=== PATIENT | female | born 1935 | race Caucasian/White ===

== ENCOUNTER 2016-10-28 21:24 | Emergency (ER) | payer MEDICARE, BC ==
[2016-10-28] MEDS ORDERED: NS 0.9% 1000 ML* 1,000 ML IV ONE (21:43)
[2016-10-28] MEDS ORDERED: Morphine INJ* 2 MG/ML 1 ML SYRINGE IV ONE (21:43)
[2016-10-28] MEDS ORDERED: Ondansetron INJ* 2 MG/ML VIAL IV ONE (21:43)
[2016-10-28 22:23] LABS: Hematocrit 41 % (35-47); Hemoglobin 13.4 g/dl (12.0-16.0); Mean Corpuscular HGB Conc 33 g/dl (31-36); Mean Corpuscular Hemoglobin 31 pg (27-31); Mean Corpuscular Volume 95 fL (80-97); Mean Platelet Volume 9 um3 (7.4-10.4); Red Blood Count 4.31 10^6/ul (4.0-5.4); Red Cell Distribution Width 13 % (10.5-15); White Blood Count 15.6 10^3/ul (3.5-10.8)
[2016-10-28 22:39] LABS: Albumin 4.6 g/dL (3.2-5.2); BUN/Creatinine Ratio 14.4 (8-20); C Reactive Protein 2.84 mg/L (< 5.00); Calcium 10.5 mg/dL (8.6-10.3); EGFR African American 24.6 (>60); EGFR Non-African American 19.1 (>60); Globulin 3.5 g/dL (2-4); Magnesium 2.2 mg/dL (1.9-2.7); Potassium 4.3 mmol/L (3.5-5.0); Total Bilirubin 0.6 mg/dL (0.2-1.0); Total Protein 8.1 g/dL (6.4-8.9)
--- NOTE | 2016-10-28 22:44 | ED ---
Pooja Lynch Anna, scribed for Roldan Gregory MD on 10/28/16 at 2147 . Abdominal Pain/Female - HPI Summary HPI Summary: Patient is an 81 y/o female coming to [facility] presenting with RLQ abdominal pain that began two days ago. She describes the severity of the pain as 10/10. The pain radiates down her groin. She couldnt get out of bed because of the pain. She denies fever, nausea, vomiting, diarrhea, and dysuria. She took hydrocodone , which she takes for her rheumatoid arthritis, but it did not alleviate her abd pain. She lives alone. Her history is significant for kidney stones and an appendectomy. - History of Current Complaint Chief Complaint: EDAbdPain Stated Complaint: ABD PAIN Time Seen by Provider: 10/28/16 21:38 Hx Obtained From: Patient ?: No Severity Initially: Moderate Severity Currently: Moderate Pain Intensity: 10 Pain Scale Used: 0-10 Numeric Location: Discrete At: RLQ Radiates: Yes Radiates to: Inguinal Associated Signs and Symptoms: Negative: Fever, Urinary Symptoms, Nausea, Vomiting, Diarrhea Allergies/Adverse Reactions: Allergies Allergy/AdvReac Type Severity Reaction Status Date / Time LIZ Inhibitors Allergy Severe Swelling Verified 10/28/16 21:41 Of Face,Lips,& Throat Lisinopril Allergy Severe See Comment Verified 10/28/16 21:41 PMH/Surg Hx/FS Hx/Imm Hx Endocrine/Hematology History: Denies: Hx Diabetes, Hx Anemia Cardiovascular History: Reports: Hx Angina, Hx Coronary Artery Disease, Hx Hypercholesterolemia, Hx Hypertension, Hx Myocardial Infarction, Hx Valvular Heart Disease - MV, Other Cardiovascular Problems/Disorders - PRIMARY CARDIOPATHY Denies: Hx Pacemaker/ICD Respiratory History: Denies: Hx Asthma, Other Respiratory Problems/Disorders GI History: Reports: Hx Gastroesophageal Reflux Disease, Hx Hiatal Hernia Denies: Hx Jaundice History: Reports: Hx Chronic Renal Failure, Hx Kidney Stones - 10 years ago Musculoskeletal History: Reports: Hx Arthritis - RA, Hx Rheumatoid Arthritis, Hx Back Problems - degenerative disease, Other Musculoskeletal History - SPINAL STENOSIS Sensory History: Reports: Hx Contacts or Glasses, Hx Glaucoma - BILAT, Hx Hearing Aid - left ear, 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 Opthamlomology History: Reports: Hx Contacts or Glasses, Hx Glaucoma - BILAT Psychiatric History: Denies: Hx Panic Disorder - Cancer History Cancer Type, Location and Year: left cheek basal cell skin cancer- 1980 Hx Chemotherapy: No Hx Radiation Therapy: No - Surgical History Surgery Procedure, Year, and Place: bladder neck plasty surgery- 1990, hysterectomy- 1974, ex lap- 1999, RT ear surgery(LABRYNTHECTOMY), LAP PALMER surgery- 1995, right kidney stent- 2002, bilateral oophrectomy -2002, replace stent right kidney -2002,LEFT carpal tunnel release- 2009,HEART STENTS X 2(HAS CARDS),CATARACT REPAIR; appendectomy Hx Anesthesia Reactions: No Infectious Disease History: No Infectious Disease History: Denies: Traveled Outside the [place] in Last 30 Days - Family History Known Family History: Positive: Cardiac Disease - Social History Occupation: Retired Lives: Alone Alcohol Use: Occasionally Alcohol Amount: glass of wine Substance Use Type: Reports: None Hx Tobacco Use: No Smoking Status (MU): Never Smoked Tobacco Review of Systems Negative: Fever Positive: Abdominal Pain. Negative: Vomiting, Diarrhea, Nausea Negative: dysuria All Other Systems Reviewed And Are Negative: Yes Physical Exam Triage Information Reviewed: Yes Vital Signs On Initial Exam: Initial Vitals Temp Pulse Resp BP Pulse Ox 97.5 F 78 18 195/83 96 10/28/16 21:38 10/28/16 21:38 10/28/16 21:38 10/28/16 21:38 10/28/16 21:38 Vital Signs Reviewed: Yes Appearance: Positive: Pain Distress - mild discomfort, Thin Skin: Positive: Warm Head/Face: Positive: Normal Head/Face Inspection Eyes: Positive: JEB ENT: Positive: Hearing grossly normal Neck: Positive: Supple Respiratory/Lung Sounds: Positive: Breath Sounds Present Cardiovascular: Positive: RRR Abdomen Description: Positive: Soft, Other: - mild lower abd tenderness. Negative: Distended, Guarding Bowel Sounds: Positive: Present Musculoskeletal: Positive: Strength/ROM Intact Neurological: Positive: Sensory/Motor Intact, Alert, Oriented to Person Place, Time, Normal Gait Diagnostics - Vital Signs Vital Signs Temp Pulse Resp BP Pulse Ox 10/28/16 21:38 97.5 F 78 18 195/83 96 - Laboratory Lab Results: Lab Results 10/28/16 10/28/16 10/28/16 Range/Units 22:05 22:05 22:05 WBC 15.6 H (3.5-10.8) 10^3/ul RBC 4.31 (4.0-5.4) 10^6/ul Hgb 13.4 (12.0-16.0) g/dl Hct 41 (35-47) % MCV 95 (80-97) fL MCH 31 (27-31) pg MCHC 33 (31-36) g/dl RDW 13 (10.5-15) % Plt Count 217 (150-450) 10^3/ul MPV 9 (7.4-10.4) um3 Neut % (Auto) 78.5 (38-83) % Lymph % (Auto) 8.8 L (25-47) % [place] % (Auto) 5.4 (1-9) % Eos % (Auto) 5.9 (0-6) % Baso % (Auto) 1.4 (0-2) % Absolute Neuts (auto) 12.2 H (1.5-7.7) 10^3/ul Absolute Lymphs (auto) 1.4 (1.0-4.8) 10^3/ul Absolute Monos (auto) 0.8 (0-0.8) 10^3/ul Absolute Eos (auto) 0.9 H (0-0.6) 10^3/ul Absolute Basos (auto) 0.2 (0-0.2) 10^3/ul Absolute Nucleated RBC 0 10^3/ul Nucleated RBC % 0 INR (Anticoag Therapy) 0.92 (0.89-1.11) Sodium 138 (133-145) mmol/L Potassium 4.3 (3.5-5.0) mmol/L Chloride 104 (101-111) mmol/L Carbon Dioxide 23 (22-32) mmol/L Anion Gap 11 (2-11) mmol/L BUN 35 H (6-24) mg/dL Creatinine 2.43 H (0.51-0.95) mg/dL Est GFR ( Amer) 24.6 (>60) Est GFR (Non-Af Amer) 19.1 (>60) BUN/Creatinine Ratio 14.4 (8-20) Glucose 102 H (70-100) mg/dL Lactic Acid (0.5-2.0) mmol/L Calcium 10.5 H (8.6-10.3) mg/dL Magnesium 2.2 (1.9-2.7) mg/dL Total Bilirubin 0.60 (0.2-1.0) mg/dL AST 22 (13-39) U/L ALT 12 (7-52) U/L Alkaline Phosphatase 98 (34-104) U/L C-Reactive Protein 2.84 (< 5.00) mg/L Total Protein 8.1 (6.4-8.9) g/dL Albumin 4.6 (3.2-5.2) g/dL Globulin 3.5 (2-4) g/dL Albumin/Globulin Ratio 1.3 (1-3) Lipase 10 L (11.0-82.0) U/L 10/28/16 Range/Units 22:05 WBC (3.5-10.8) 10^3/ul RBC (4.0-5.4) 10^6/ul Hgb (12.0-16.0) g/dl Hct (35-47) % MCV (80-97) fL MCH (27-31) pg MCHC (31-36) g/dl RDW (10.5-15) % Plt Count (150-450) 10^3/ul MPV (7.4-10.4) um3 Neut % (Auto) (38-83) % Lymph % (Auto) (25-47) % [place] % (Auto) (1-9) % Eos % (Auto) (0-6) % Baso % (Auto) (0-2) % Absolute Neuts (auto) (1.5-7.7) 10^3/ul Absolute Lymphs (auto) (1.0-4.8) 10^3/ul Absolute Monos (auto) (0-0.8) 10^3/ul Absolute Eos (auto) (0-0.6) 10^3/ul Absolute Basos (auto) (0-0.2) 10^3/ul Absolute Nucleated RBC 10^3/ul Nucleated RBC % INR (Anticoag Therapy) (0.89-1.11) Sodium (133-145) mmol/L Potassium (3.5-5.0) mmol/L Chloride (101-111) mmol/L Carbon Dioxide (22-32) mmol/L Anion Gap (2-11) mmol/L BUN (6-24) mg/dL Creatinine (0.51-0.95) mg/dL Est GFR ( Amer) (>60) Est GFR (Non-Af Amer) (>60) BUN/Creatinine Ratio (8-20) Glucose (70-100) mg/dL Lactic Acid 1.4 (0.5-2.0) mmol/L Calcium (8.6-10.3) mg/dL Magnesium (1.9-2.7) mg/dL Total Bilirubin (0.2-1.0) mg/dL AST (13-39) U/L ALT (7-52) U/L Alkaline Phosphatase (34-104) U/L C-Reactive Protein (< 5.00) mg/L Total Protein (6.4-8.9) g/dL Albumin (3.2-5.2) g/dL Globulin (2-4) g/dL Albumin/Globulin Ratio (1-3) Lipase (11.0-82.0) U/L Result Diagrams: 10/28/16 22:05 10/28/16 22:05 Lab Statement: Any lab studies that have been ordered have been reviewed, and results considered in the medical decision making process. - CT CT abd/pel CT Interpretation: Positive (See Comments) CT Interpretation Completed By: Radiologist - EKG 1 Cardiac Rate: NL - 82 bpm EKG Rhythm: Sinus Rhythm ST Segment: Normal Ectopy: None EKG Interpretation: LVH Re-Evaluation - Re-Evaluation First Eval Change: Improved - pt feels much better after enema with good results Abdominal Pain Fem Course/Dx - Course Course Of Treatment: Patient is an 81 y/o female coming to [facility] presenting with RLQ abdominal pain that began two days ago. She describes the severity of the pain as 10/10. The pain radiates down her groin. She couldnt get out of bed because of the pain. She denies fever, nausea, vomiting, diarrhea, and dysuria. She took hydrocodone, which she takes for her rheumatoid arthritis, but it did not alleviate her abd pain. She lives alone. Her history is significant for kidney stones, appendectomy. The patient was given fluids, Morphine, and Zofran in the ED course. EKG reveals NSR at 82 bpm with LVH. Labs reveal WBC of 15.6, lymph % of 8.8, absolute neuts of 12.2, absolute Eos of 0.9 , BUN of 35, Creatinine of 2.43, Glucose of 102, Calcium of 10.5, and lipase of 10. CT abd/pel reveals s/p cholecystectomy and hysterectomy. Increased extrahepatic biliary dilatation since 10/30/07, common duct previously 1 cm diameter and now 1.4 cm, uncertain significance. No visible choledocholithiasis or obvious periampullary mass; exam limited by noncontrast technique. Stable 1 cm right hepatic cyst or hemangioma. Punctate stones appearing in left kidney. Subcentimeter cortical hypodensity appearing in upper pole right kidney, too small to characterize. Minimal caliectasis left kidney. Unremarkable pancreas. Inspissated-appearing feces colon and rectum, possibly constipation. No bowel obstruction, colitis, free fluid, or air. Diverticulosis colon without acute diverticulitis. Appendix not seen. Calcifications below bladder base, possibly stones in a urethral diverticulum, stable. UA reveals 2+ protein, trace ketones , trace leukocyte esterase, 1+ urine WBC, 1+ urine RBC, present squamous epithelial cells, and 1+ bacteria. A soap suds enema was completed in the ED course. Upon re-evaluation, patient now reports that she is feeling better. Patient will be discharged with follow up from primary care physician. Patient is agreeable with plan. - Diagnoses Provider Diagnoses: Abdominal pain, Constipation Discharge - Discharge Plan Condition: Stable Disposition: HOME Patient Education Materials: Constipation (ED), Abdominal Pain (ED) Referrals: Enrique Null MD [Primary Care Provider] - Additional Instructions: Follow up with your primary care provider within 48 hours. Return to the Emergency Department for new or worsening symptoms. The documentation as recorded by the Pooja rodriguez Anna accurately reflects the service I personally performed and the decisions made by , Roldan Gregory MD.
[2016-10-29 00:24] LABS: Urine Bacteria 1+ (Absent); Urine Bilirubin Negative (Negative); Urine Glucose Negative (Negative); Urine Nitrite Negative (Negative)
[2016-10-29 02:58] VITALS: BP 197/76
--- NOTE | 2016-10-29 07:24 | RAD ---
INDICATION: Abdominal pain COMPARISON: October 30, 2007 TECHNIQUE: Axial source images were acquired from the level hemidiaphragms to the symphysis pubis. The examination was ordered with oral contrast only. Lung bases: The lung bases are clear. Liver: The liver is normal in size. Noncontrast imaging shows no evidence of a hepatic mass or ductal dilatation. Gallbladder: Cholecystectomy. The common duct is prominent likely related to postcholecystectomy state. Spleen: The spleen is normal in size. The noncontrast CT appearance is normal. Pancreas: Noncontrast imaging shows no pancreatic mass or ductal dilitation. Adrenal glands: No masses are identified. Kidneys/Bladder: There are tiny, nonobstructive, left renal calculi. There is probably a tiny exophytic cyst in lower pole left kidney. The noncontrast CT the kidneys otherwise unremarkable Adenopathy: There is no evidence of intraperitoneal or retroperitoneal adenopathy. Evaluation is limited without oral contrast. Fluid collections: There are no free or localized fluid collections. Vessels: The aorta and iliac vessels are normal in caliber. There are no significant atherosclerotic changes. The IVC appears normal Pelvic organs: Hysterectomy. No adnexal mass. Possible calcification in a urethral diverticulum, unchanged GI tract: No CT abnormality upper GI tract. Colonic redundancy with retained stool and scattered diverticula of the sigmoid colon. No CT evidence of acute diverticulitis. Soft tissues: No soft tissue abnormalities of the extraperitoneal abdomen or pelvis are identified. Osseous structures: There are no acute osseous findings. IMPRESSION: 1. Postsurgical changes to include cholecystectomy and hysterectomy. 2. Scattered diverticula without CT evidence of acute diverticulitis. Retained stool. 3. Tiny, nonobstructive, left renal calculi. 4. 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 5. No acute CT findings. No mass or inflammatory change.
== END 2016-10-29 02:57 | disposition home or self-care (01) ==
LOC: ED 21:24
DX: R10.31 Right lower quadrant pain (principal); K59.00 Constipation, unspecified
CPT/HCPCS: 36415; 74176; 80053; 81003; 81015; 83605; 83690; 83735; 85025; 85610; 86140; 87086; 93005; 96374; 96375; 99283; J2270; J2405

== ENCOUNTER 2016-10-29 15:48 | Inpatient (IN) | payer MEDICARE, BC ==
[2016-10-29] MEDS ORDERED: NS 0.9% 1000 ML* 1,000 ML IV ONE ×2 (15:58→16:51)
[2016-10-29 16:38] LABS: Hematocrit 38 % (35-47); Hemoglobin 12.8 g/dl (12.0-16.0); Mean Corpuscular HGB Conc 33 g/dl (31-36); Mean Corpuscular Hemoglobin 31 pg (27-31); Mean Corpuscular Volume 94 fL (80-97); Mean Platelet Volume 9 um3 (7.4-10.4); Red Cell Distribution Width 13 % (10.5-15)
[2016-10-29] MEDS ORDERED: Morphine INJ* 4 MG/ML 1 ML SYRINGE IV ONE (16:51)
[2016-10-29] MEDS ORDERED: Ondansetron INJ* 2 MG/ML VIAL IV ONE (16:51)
[2016-10-29 16:54] LABS: Albumin 4.5 g/dL (3.2-5.2); BUN/Creatinine Ratio 15.8 (8-20); C Reactive Protein 6.95 mg/L (< 5.00); Calcium 10.4 mg/dL (8.6-10.3); EGFR African American 27.3 (>60); EGFR Non-African American 21.3 (>60); Globulin 3.3 g/dL (2-4); Total Bilirubin 0.5 mg/dL (0.2-1.0); Total Protein 7.8 g/dL (6.4-8.9)
--- NOTE | 2016-10-29 20:04 | ED ---
Ochoa Lynch Erika, scribed for Marcela Hudson MD on 10/29/16 at 1740 . Abdominal Pain/Female - HPI Summary HPI Summary: Patient is an 81-year-old female presenting to the ED with her son with a CC of constant abdominal pain starting 10/27/2016. Patient reports that she has had RLQ pain radiating to the suprapubic region. Patient reports that pain had sudden onset with pain rated a 10/10, and that pain is still a 10/10. Pain is slightly alleviated by lying on her left side and applying pressure to the RLQ. Pain is aggravated by palpation. Patient was seen in the ED last night and had a CT A/P W/O contrast that showed retained stool and no acute CT findings, and she was diagnosed with constipation. Patient reports she does not think she is constipated, and has been having her normal BMs each day. She did have an enema at the ED last night and states she has had diarrhea since that time. Pain improved temporarily while in the ED yesterday, but returned today. She does state she was able to eat breakfast today. Patient denies trauma, and she denies back pain and leg pain. She also denies cough and dysuria. Hx [place] in 2008 - she takes a daily ASA but no other blood thinners. She denies Hx stroke. PSHx hysterectomy, appendectomy, cholecystectomy, exploratory RLQ surgery. She denies FHx diabetes. Patient lives alone, does not smoke, and occasionally drinks. - History of Current Complaint Chief Complaint: EDAbdPain Stated Complaint: ABD PAIN Time Seen by Provider: 10/29/16 15:56 Hx Obtained From: Patient, Family/Parker - Son Onset/Duration: Sudden Onset, Lasting Days, Still Present Timing: Constant Severity Currently: Moderate Pain Intensity: 10 Pain Scale Used: 0-10 Numeric Location: Discrete At: RLQ, Suprapubic Aggravating Factor(s): Other: - palpation Alleviating Factor(s): Other: - lying on left side and applying pressure to the area Associated Signs and Symptoms: Positive: Diarrhea - since enema Allergies/Adverse Reactions: Allergies Allergy/AdvReac Type Severity Reaction Status Date / Time LIZ Inhibitors Allergy Severe Swelling Verified 10/28/16 21:41 Of Face,Lips,& Throat Lisinopril Allergy Severe See Comment Verified 10/28/16 21:41 PMH/Surg Hx/FS Hx/Imm Hx Endocrine/Hematology History: Denies: Hx Diabetes, Hx Anemia Cardiovascular History: Reports: Hx Angina, Hx Coronary Artery Disease, Hx Hypercholesterolemia, Hx Hypertension, Hx Myocardial Infarction, Hx Valvular Heart Disease - MV, Other Cardiovascular Problems/Disorders - PRIMARY CARDIOPATHY Denies: Hx Pacemaker/ICD Respiratory History: Denies: Hx Asthma, Other Respiratory Problems/Disorders GI History: Reports: Hx Gastroesophageal Reflux Disease, Hx Hiatal Hernia Denies: Hx Jaundice History: Reports: Hx Chronic Renal Failure, Hx Kidney Stones - 10 years ago Musculoskeletal History: Reports: Hx Arthritis - RA, Hx Rheumatoid Arthritis, Hx Back Problems - degenerative disease, Other Musculoskeletal History - SPINAL STENOSIS Sensory History: Reports: Hx Contacts or Glasses, Hx Glaucoma - BILAT, Hx Hearing Aid - left ear, 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 Opthamlomology History: Reports: Hx Contacts or Glasses, Hx Glaucoma - BILAT Psychiatric History: Denies: Hx Panic Disorder - Cancer History Cancer Type, Location and Year: left cheek basal cell skin cancer- 1980 Hx Chemotherapy: No Hx Radiation Therapy: No - Surgical History Surgery Procedure, Year, and Place: bladder neck plasty surgery- 1990, hysterectomy- 1974, ex lap- 1999, RT ear surgery(LABRYNTHECTOMY), LAP PALMER surgery- 1995, right kidney stent- 2002, bilateral oophrectomy -2002, replace stent right kidney -2002,LEFT carpal tunnel release- 2009,HEART STENTS X 2(HAS CARDS),CATARACT REPAIR; appendectomy Hx Anesthesia Reactions: No Infectious Disease History: No Infectious Disease History: Denies: Traveled Outside the [place] in Last 30 Days - Family History Known Family History: Positive: Cardiac Disease Negative: Diabetes - Social History Occupation: Retired Lives: Alone Alcohol Use: Occasionally Alcohol Amount: glass of wine Substance Use Type: Reports: None Hx Tobacco Use: No Smoking Status (MU): Never Smoked Tobacco Review of Systems Negative: Cough Positive: Abdominal Pain, Diarrhea - since enema last night Negative: dysuria Negative: Arthralgia, Myalgia All Other Systems Reviewed And Are Negative: Yes Physical Exam Triage Information Reviewed: Yes Vital Signs On Initial Exam: Initial Vitals Temp Pulse Resp BP Pulse Ox 98.4 F 92 16 197/81 100 10/29/16 15:49 10/29/16 15:49 10/29/16 15:49 10/29/16 15:49 10/29/16 15:49 Vital Signs Reviewed: Yes Appearance: Positive: Well-Appearing, No Pain Distress Skin: Positive: Warm, Skin Color Reflects Adequate Perfusion, Dry Eyes: Positive: EOMI, JEB ENT: Positive: Pharynx normal, TMs normal Neck: Positive: Supple, Nontender Respiratory/Lung Sounds: Positive: Clear to Auscultation, Breath Sounds Present. Negative: Rales, Rhonchi, Wheezes Cardiovascular: Positive: RRR, Other - No gallops. Negative: Murmur, Rub Abdomen Description: Positive: Soft, Other: - RLQ tenderness. No rebound. Negative: CVA Tenderness (R), Distended, Guarding Bowel Sounds: Positive: Present Musculoskeletal: Positive: Other - GAVIN. Negative: Edema Left, Edema Right Neurological: Positive: Sensory/Motor Intact, Alert, Oriented to Person Place, Time, Other - CN II-XII Psychiatric: Positive: Affect/Mood Appropriate Diagnostics - Vital Signs Vital Signs Temp Pulse Resp BP Pulse Ox 10/29/16 16:06 100.0 F 79 31 187/117 98 10/29/16 15:49 98.4 F 92 16 197/81 100 - Laboratory Lab Results: Lab Results 10/29/16 10/29/16 10/29/16 Range/Units 16:29 16:29 16:29 WBC 10.0 (3.5-10.8) 10^3/ul RBC 4.10 (4.0-5.4) 10^6/ul Hgb 12.8 (12.0-16.0) g/dl Hct 38 (35-47) % MCV 94 (80-97) fL MCH 31 (27-31) pg MCHC 33 (31-36) g/dl RDW 13 (10.5-15) % Plt Count 205 (150-450) 10^3/ul MPV 9 (7.4-10.4) um3 Neut % (Auto) 77.7 (38-83) % Lymph % (Auto) 14.2 L (25-47) % [place] % (Auto) 6.0 (1-9) % Eos % (Auto) 1.1 (0-6) % Baso % (Auto) 1.0 (0-2) % Absolute Neuts (auto) 7.8 H (1.5-7.7) 10^3/ul Absolute Lymphs (auto) 1.4 (1.0-4.8) 10^3/ul Absolute Monos (auto) 0.6 (0-0.8) 10^3/ul Absolute Eos (auto) 0.1 (0-0.6) 10^3/ul Absolute Basos (auto) 0.1 (0-0.2) 10^3/ul Absolute Nucleated RBC 0.01 10^3/ul Nucleated RBC % 0.1 Sodium 139 (133-145) mmol/L Potassium 4.0 (3.5-5.0) mmol/L Chloride 105 (101-111) mmol/L Carbon Dioxide 21 L (22-32) mmol/L Anion Gap 13 H (2-11) mmol/L BUN 35 H (6-24) mg/dL Creatinine 2.22 H (0.51-0.95) mg/dL Est GFR ( Amer) 27.3 (>60) Est GFR (Non-Af Amer) 21.3 (>60) BUN/Creatinine Ratio 15.8 (8-20) Glucose 111 H (70-100) mg/dL Lactic Acid 1.4 (0.5-2.0) mmol/L Calcium 10.4 H (8.6-10.3) mg/dL Total Bilirubin 0.50 (0.2-1.0) mg/dL AST 23 (13-39) U/L ALT 12 (7-52) U/L Alkaline Phosphatase 96 (34-104) U/L C-Reactive Protein 6.95 H (< 5.00) mg/L Total Protein 7.8 (6.4-8.9) g/dL Albumin 4.5 (3.2-5.2) g/dL Globulin 3.3 (2-4) g/dL Albumin/Globulin Ratio 1.4 (1-3) Lipase 14 (11.0-82.0) U/L Result Diagrams: 10/29/16 16:29 10/29/16 16:29 Lab Statement: Any lab studies that have been ordered have been reviewed, and results considered in the medical decision making process. - EKG 18:34 Cardiac Rate: NL - at 93 bpm EKG Rhythm: Sinus Rhythm ST Segment: Non-Specific EKG Interpretation: Anterior and inferior Q waves EKG Comparison: No Significant Change - From EKG done yesterday Abdominal Pain Fem Course/Dx - Course Course Of Treatment: 81 yo female who returns with rlq pain of unknown etiology , ct done yesterday was re- reviewed today without any real areas of concern, pt mounting low grade temp here. case discussed with Dr. Strong who will evaluate pt for admission - Diagnoses Provider Diagnoses: Abdominal pain - Provider Notifications Discussed Care Of Patient With: Dr. Narayan (radiology) at 17:50 - will review CT from last night again - no acute findings - large amount of liquid stool, no diverticuli on the right side, no thickening of the colon wall. Dr. Strong ( hospitalist) at 19:35 - will see patient. Discharge - Discharge Plan Condition: Stable Disposition: ADMITTED TO [facility] The documentation as recorded by the Ochoa rodriguez Erika accurately reflects the service I personally performed and the decisions made by me, Marcela Hudson MD.
[2016-10-29] MEDS ORDERED: Acetaminophen TAB* 325 MG PO PRN (20:17)
[2016-10-29] MEDS ORDERED: Cyclobenzaprine TAB* 10 MG PO PRN (20:22)
[2016-10-29] MEDS ORDERED: Piperac/Tazob 3.375 gm in NS* 3.375 GM/100 ML BAG IVPB ONE (20:30)
[2016-10-29] MEDS: Morphine INJ* 2 MG/ML 1 ML SYRINGE IV PRN ×3 (21:22→22:44)
[2016-10-29] MEDS ORDERED: Morphine INJ* 2 MG/ML 1 ML SYRINGE IV ONE (21:30)
[2016-10-29 22:10] LABS: Urine Bacteria Absent (Absent); Urine Bilirubin Negative (Negative); Urine Glucose Negative (Negative); Urine Nitrite Negative (Negative)
[2016-10-29] MEDS: NS 0.9% 1000 ML* 1,000 ML IV SCH (22:41)
[2016-10-29] MEDS: hydrALAZINE IV* 20 MG/ML VIAL IV SLOW PU PRN (22:51)
[2016-10-29] MEDS: Atorvastatin* 20 MG TAB PO SCH (22:55)
[2016-10-29] MEDS: Carvedilol TAB* 25 MG PO SCH (22:55)
[2016-10-29] MEDS: Dorzolamide/Timolol OPTH (NF) 10 ML BOT BOTH EYES SCH (22:56)
[2016-10-29] MEDS: Brimonidine P 0.15%(NF) OPH SOL 5 ML BTL BOTH EYES SCH (22:56)
[2016-10-29] MEDS: Heparin VIAL(*) 5000 UNITS/ML VIAL (FIVE THOUSAND) SUBCUT SCH (22:57)
[2016-10-29] MEDS: Latanoprost 0.005%* 2.5 ml BTL BOTH EYES SCH (23:19)
[2016-10-29] MEDS: HYDROcodone/ACETAMIN 5-325 MG* 1 TAB PO PRN (23:43)
[2016-10-30] MEDS: Piperac/Tazob 3.375 gm in NS* 3.375 GM/100 ML BAG IVPB SCH ×2 (01:47→13:22)
[2016-10-30] MEDS: Heparin VIAL(*) 5000 UNITS/ML VIAL (FIVE THOUSAND) SUBCUT SCH ×3 (05:38→21:11)
[2016-10-30 06:41] LABS: Hematocrit 36 % (35-47); Hemoglobin 11.8 g/dl (12.0-16.0); Mean Corpuscular HGB Conc 33 g/dl (31-36); Mean Corpuscular Hemoglobin 31 pg (27-31); Mean Corpuscular Volume 95 fL (80-97); Mean Platelet Volume 9 um3 (7.4-10.4); Red Blood Count 3.76 10^6/ul (4.0-5.4); Red Cell Distribution Width 13 % (10.5-15); White Blood Count 11.2 10^3/ul (3.5-10.8)
[2016-10-30 06:50] LABS: BUN/Creatinine Ratio 14.4 (8-20); Calcium 9.4 mg/dL (8.6-10.3); EGFR African American 28.2 (>60); EGFR Non-African American 21.9 (>60); Potassium 3.7 mmol/L (3.5-5.0)
[2016-10-30] MEDS: Brimonidine P 0.15%(NF) OPH SOL 5 ML BTL BOTH EYES SCH (07:15)
[2016-10-30] MEDS: Dorzolamide/Timolol OPTH (NF) 10 ML BOT BOTH EYES SCH (07:40)
--- NOTE | 2016-10-30 07:42 | HP ---
HISTORY AND PHYSICAL: DATE OF ADMISSION: 10/29/16 PRIMARY CARE PROVIDER: Enrique Null MD ATTENDING PHYSICIAN WHILE IN THE HOSPITAL: Vivian Strong MD * (report dictated by Barrie Nelson NP) CHIEF COMPLAINT: Abdominal pain. HISTORY OF PRESENT ILLNESS: Ms. Faith is an 81-year-old female patient. She has a pretty extensive past medical history. She has a history of rheumatoid arthritis. She is on leflunomide. She also has a history of CAD, TN, hypertension, history of CKD, TIA, GERD, and hiatal hernia. She comes into the ER today stating that over the last 24 to 48 hours, she has had sudden onset of right groin abdominal pain, worse if she uses the right leg and she tries to walk, but denies having any pain if she is sitting in bed, in the chair, moving the leg. She comes in because the pain has gotten progressively worse. She actually was in the ER last night, had a CAT scan which essentially was unremarkable. She did have a white count of 15,000. It was felt that her pain was related to constipation. She was sent home and she was told to come back should the pain worsen or come back, which it did today. She tried managing at home. She had bowel movements today that were liquid bowel movements as she did receive an enema in the ED last night and she states she has been having a bowel movement on daily a basis, which have not been tarry looking and have been normal caliber for her. She states that she has no other associated symptoms with nausea and vomiting. She does state the pain is worse, if she does try to walk on that right leg. She called her son today and asked him to bring her back to the hospital as she was having a significant amount of pain. She came back, was evaluated. She was now noted to have low-grade fevers. The white count has gone down and the CT imaging was reviewed with the radiologist who felt there was no obvious pathology for pain on the right side. Because of the low-grade fevers and the fact that she is immunocompromised, we were asked to evaluate for admission. She denied having any chest pain or any shortness of breath. She denies having any back pain and denied having any urinary symptoms. PAST MEDICAL HISTORY: Significant for: 1. TN. 2. CAD. 3. Hypertension. 4. CKD. 5. TIA. 6. Rheumatoid arthritis. 7. GERD. 8. Hiatal hernia. PAST SURGICAL HISTORY: 1. She has had a heart catheterization x2 with 2 stents. 2. She has had an appendectomy. 3. Cholecystectomy. 4. Hysterectomy. 5. Cataract extraction. 6. Carpal tunnel. HOME MEDICATIONS: Brimoniminde Tartrate 1 drop both eyes TID Protonix 1 tab Daily Cospt 1 drop BID both eyes Flexeril 1 tab bedtime PRN Vitamin D3 1000 units daily Coreg 1 tab BID Aspirin 1 tab daily Hydralazine 1 tab tid prn [place] 5/325mg every 8 hours PRN Nitro patch 0.2 mg daily Meclizine 1 tab po tid PRN Leflunomide 1 tab daily Xalatan 1 drop both eyes bedtime Norvasc 2 tab daily Crestor 1 tab bedtime Nitro 0.4 mg SL q5 minutes PRN times three ALLERGIES TO MEDICATION: Include LISINOPRIL. FAMILY HISTORY: Her mother had a history of TN. Father had a history of cancer. SOCIAL HISTORY: She does not smoke. She occasionally drinks alcohol. She lives alone. Surrogate decision maker is her son. REVIEW OF SYSTEMS: There is a documented fever here, but she did not document a fever at home. She denied having any significant weight change. There was no double vision. She denied having any ear discharge. There was no rhinorrhea. No sore throat. No thyroid enlargement. She denied having any chest pain. There was no orthopnea. No nocturnal dyspnea. She does admit to abdominal pain per my HPI. She denied any nausea or vomiting. No dysuria. No frequency. No loss of consciousness. No pruritus. No skin ulcerations. Review of 14 systems completed, all others negative. PHYSICAL EXAMINATION GENERAL: At this time, Ms. Faith is an 81-year-old female patient. She is sitting in the ER stretcher. She does not appear to be in any acute distress. VITAL SIGNS: Reveals blood pressure 181/74 with a pulse of 101, respirations 20 , O2 sat 94%, and temperature 99.4. She did have temperature as high as 100.3 HEENT: Head is atraumatic, normocephalic. Eyes: EOMs are intact. Sclerae anicteric and not pale. NECK: Supple. Throat: Oral mucosa appears to be moist. No oropharyngeal erythema. LUNGS: Clear to auscultation bilaterally. No wheezes, rales, or rhonchi. HEART: Sounds S1 and S2, regular rate and rhythm. No murmurs, rubs, or gallops. ABDOMEN: Soft, it was flat. There was tenderness along the right lower quadrant. No inguinal hernia has been noted. She had no guarding or rebound tenderness. EXTREMITIES: Pulses are 2+ throughout. She has full range of motion in the right lower extremity and in the right hip. She has a little bit of tenderness with motion, but is exquisitely tender or painful on palpitation or with examination. She had 5/5 strength. No peripheral edema noted. Pulses were 2+ throughout. SKIN: Intact. DIAGNOSTIC STUDIES/LAB DATA: Labs today revealed WBC at 10.0, RBC of 4.10, hemoglobin 12.8, hematocrit 38, and platelet count 205. Sodium 139; potassium 4.0; chloride 105; bicarb of 21; BUN 35; creatinine 2.22, which is right near her baseline; glucose is 111; lactic 1.4; and calcium 10.4. Total bili 0.5, AST 0.3, and ALT 12. CRP was 6.95. Lipase 14. 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 No acute CT findings. No mass or inflammatory change. Old medical records were reviewed. ASSESSMENT AND PLAN: Ms. Faith is an 81-year-old female patient coming to the hospital today with complaints of recurrent abdominal discomfort and now found to have a low-grade fever. We were asked to evaluate for admission. She will be admitted under inpatient status for: 1. Abdominal pain: The etiology is unclear. I think at this point, I will go ahead and panculture her. She has a history of renal suppression. I will give her Zosyn, give her 1 L of fluids here. If the cultures come back positive, then we probably may need to consider reimaging. If the pain does not subside, we may need to consider doing MR. We may also need to consider surgical evaluation should her pain not improve. I have ordered p.r.n. medications in the forms of morphine and [place] to help her with the pain. So for the time being, we will continue to monitor with serial exams. 2. History of coronary artery disease and myocardial infarction: Continue her current medications. 3. Hypertension: Blood pressure is a little elevated down in the ED. We will go ahead and monitor this. I have ordered p.r.n. hydralazine. 4. Chronic kidney disease: Her creatinines are at baseline. 5. History of transient ischemic attack: Continue with secondary prevention. She is on aspirin. 6. Rheumatoid arthritis: I am going to hold her leflunomide while she is here in the hospital and with an unknown possible infection. 7. Gastroesophageal reflux disease: Continue PPI therapy. 8. History of glaucoma: Continue meds as prescribed. 9. DVT prophylaxis: She is high risk. She will be placed on heparin subcu. 10. Code status: She wishes to be a do not resuscitate. We will try to track down her MOLST if not, then we will fill one out with her. 11. Fluids, electrolytes, and nutrition: She can have a heart healthy diet. TIME SPENT: Time spent on the admission was 60 minutes; greater than half the time was spent [id number] with the patient obtaining my history and physical, the other half time is spent going over the plan of care with the patient and implementing plan of care. I discussed the plan of care with my attending, Dr. Strong. She is in agreement. BARRIE NELSON NP CC: Enrique Null MD * [id number]/[facility] #: [id number] ANGELA
[2016-10-30] MEDS: hydrALAZINE IV* 20 MG/ML VIAL IV SLOW PU PRN (07:47)
[2016-10-30] MEDS: Morphine INJ* 2 MG/ML 1 ML SYRINGE IV PRN (07:47)
[2016-10-30] MEDS: amLODIPine TAB* 5 MG PO SCH (07:51)
[2016-10-30] MEDS: Aspirin Low Dose CHEW TAB* 81 MG PO SCH (07:51)
[2016-10-30] MEDS: Carvedilol TAB* 25 MG PO SCH ×2 (07:51→19:59)
[2016-10-30] MEDS ORDERED: Omeprazole CAP* 20 MG PO SCH (09:00)
--- NOTE | 2016-10-30 09:59 | PN ---
Subjective Date of Service: 10/30/16 Interval History: Pt still c/o severe abd pain. Scant liquid stool incontinence, but no normal BM since 10/27/16. Pain is in RLQ radiating to R groin Objective Active Medications: Acetaminophen (Tylenol Tab*) 650 mg PO Q4H PRN PRN Reason: FEVER/PAIN Hydrocodone Bitart/Acetaminophen (Maynard 5-325 Tab*) 1 tab PO Q8H PRN PRN Reason: PAIN - BACK Last Admin: 10/29/16 23:43 Dose: 1 tab Amlodipine Besylate (Norvasc Tab*) 10 mg PO DAILY [facility] Last Admin: 10/30/16 07:51 Dose: 10 mg Aspirin (Aspirin Low Dose Tab*) 81 mg PO DAILY [facility] Last Admin: 10/30/16 07:51 Dose: 81 mg Atorvastatin Calcium (Lipitor*) 20 mg PO BEDTIME [facility] PRN Reason: Protocol Last Admin: 10/29/16 22:55 Dose: 20 mg Brimonidine Tartrate (Alphagan P 0.15%(Nf)) 1 drop BOTH EYES BID [facility] Last Admin: 10/30/16 07:15 Dose: Not Given Carvedilol (Coreg Tab*) 25 mg PO BID [facility] Last Admin: 10/30/16 07:51 Dose: 25 mg Cyclobenzaprine HCl (Flexeril Tab*) 5 mg PO BEDTIME PRN PRN Reason: SPASMS Dorzolamide/Timolol (Cosopt (Nf)) 1 drop BOTH EYES BID [facility] PRN Reason: Protocol Last Admin: 10/30/16 07:40 Dose: Not Given Heparin Sodium (Porcine) (Heparin Vial(*)) 5,000 units SUBCUT Q8HR [facility] Last Admin: 10/30/16 05:38 Dose: 5,000 units Hydralazine HCl (Apresoline Iv*) 5 mg IV SLOW PU Q6H PRN PRN Reason: BLOOD PRESSURE Last Admin: 10/30/16 07:47 Dose: 5 mg Hydralazine HCl (Apresoline Tab*) 10 mg PO TID [facility] Sodium Chloride (Ns 0.9% 1000 Ml*) 1,000 mls @ 100 mls/hr IV PER RATE [facility] Last Admin: 10/29/16 22:41 Dose: 100 mls/hr Piperacillin Sod/Tazobactam Sod (Zosyn 3.375 Gm In Ns Premix*) 3.375 gm in 100 mls @ 25 mls/hr IVPB Q12H [facility] Last Admin: 10/30/16 01:47 Dose: 25 mls/hr Latanoprost (Xalatan 0.005%*) 1 drop BOTH EYES BEDTIME [facility] Last Admin: 10/29/16 23:19 Dose: 1 drop Morphine Sulfate (Morphine Inj (Syringe)*) 4 mg IV Q4H PRN PRN Reason: PAIN Last Admin: 10/30/16 07:47 Dose: 4 mg Nitroglycerin (Nitroglycerin 5 Mg Patch*) 1 patch TRANSDERM DAILY [facility] Omeprazole (Prilosec Cap*) 20 mg PO DAILY [facility] Last Admin: 10/30/16 07:51 Dose: 20 mg Ondansetron HCl (Zofran Inj*) 4 mg IV Q6H PRN PRN Reason: NAUSEA Vital Signs 10/29/16 10/29/16 10/29/16 20:30 21:00 21:01 Temperature Pulse Rate 104 99 100 Respiratory 20 28 27 Rate Blood Pressure 138/103 191/125 (mmHg) O2 Sat by Pulse 96 97 97 Oximetry 10/29/16 10/29/16 10/29/16 21:13 21:22 21:31 Temperature 97.4 F Pulse Rate 95 Respiratory 19 30 30 Rate Blood Pressure 197/78 (mmHg) O2 Sat by Pulse 97 Oximetry 10/29/16 10/29/16 10/29/16 21:56 21:57 22:00 Temperature Pulse Rate 95 88 Respiratory 25 23 Rate Blood Pressure 198/78 196/78 (mmHg) O2 Sat by Pulse 97 97 Oximetry 10/29/16 10/29/16 10/29/16 22:01 22:22 22:24 Temperature 101.4 F 97.4 F Pulse Rate 95 Respiratory 18 19 Rate Blood Pressure 197/78 (mmHg) O2 Sat by Pulse 97 Oximetry 10/29/16 10/29/16 10/29/16 22:31 22:44 23:43 Temperature Pulse Rate Respiratory 18 18 17 Rate Blood Pressure (mmHg) O2 Sat by Pulse Oximetry 10/29/16 10/30/16 10/30/16 23:44 01:43 03:16 Temperature 97.5 F Pulse Rate 76 Respiratory 17 17 16 Rate Blood Pressure 132/57 (mmHg) O2 Sat by Pulse 96 Oximetry 10/30/16 10/30/16 10/30/16 07:34 07:47 07:48 Temperature 97.4 F Pulse Rate 86 Respiratory 28 24 Rate Blood Pressure 183/74 (mmHg) O2 Sat by Pulse 100 99 Oximetry 10/30/16 10/30/16 07:58 08:47 Temperature Pulse Rate Respiratory 24 20 Rate Blood Pressure (mmHg) O2 Sat by Pulse Oximetry Oxygen Devices in Use Now: None Appearance: 81 yo F in nAd, aAOx3 Eyes: No Scleral Icterus, PERRLA Ears/Nose/Mouth/Throat: NL Teeth, Lips, Gums, Mucous Membranes Moist Neck: NL Appearance and Movements; NL JVP, Trachea Midline Respiratory: Symmetrical Chest Expansion and Respiratory Effort, Clear to Auscultation Cardiovascular: NL Sounds; No Murmurs; No JVD, RRR Abdominal: - - RLQ tenderness, no rebound, no guarding BS hyperactive Lymphatic: No Cervical Adenopathy Extremities: No Edema, No Clubbing, Cyanosis Skin: No Rash or Ulcers, No Nodules or Sclerosis Neurological: Alert and Oriented x 3, NL Muscle Strength and Tone Result Diagrams: 10/30/16 06:27 10/30/16 06:27 Additional Lab and Data: Lab Results 10/29/16 10/29/16 10/29/16 Range/Units 16:29 16:29 16:29 WBC 10.0 (3.5-10.8) 10^3/ul RBC 4.10 (4.0-5.4) 10^6/ul Hgb 12.8 (12.0-16.0) g/dl Hct 38 (35-47) % MCV 94 (80-97) fL MCH 31 (27-31) pg MCHC 33 (31-36) g/dl RDW 13 (10.5-15) % Plt Count 205 (150-450) 10^3/ul MPV 9 (7.4-10.4) um3 Neut % (Auto) 77.7 (38-83) % Lymph % (Auto) 14.2 L (25-47) % Alfalfa % (Auto) 6.0 (1-9) % Eos % (Auto) 1.1 (0-6) % Baso % (Auto) 1.0 (0-2) % Absolute Neuts (auto) 7.8 H (1.5-7.7) 10^3/ul Absolute Lymphs (auto) 1.4 (1.0-4.8) 10^3/ul Absolute Monos (auto) 0.6 (0-0.8) 10^3/ul Absolute Eos (auto) 0.1 (0-0.6) 10^3/ul Absolute Basos (auto) 0.1 (0-0.2) 10^3/ul Absolute Nucleated RBC 0.01 10^3/ul Nucleated RBC % 0.1 Sodium 139 (133-145) mmol/L Potassium 4.0 (3.5-5.0) mmol/L Chloride 105 (101-111) mmol/L Carbon Dioxide 21 L (22-32) mmol/L Anion Gap 13 H (2-11) mmol/L BUN 35 H (6-24) mg/dL Creatinine 2.22 H (0.51-0.95) mg/dL Est GFR ( Amer) 27.3 (>60) Est GFR (Non-Af Amer) 21.3 (>60) BUN/Creatinine Ratio 15.8 (8-20) Glucose 111 H (70-100) mg/dL Lactic Acid 1.4 (0.5-2.0) mmol/L Calcium 10.4 H (8.6-10.3) mg/dL Total Bilirubin 0.50 (0.2-1.0) mg/dL AST 23 (13-39) U/L ALT 12 (7-52) U/L Alkaline Phosphatase 96 (34-104) U/L C-Reactive Protein 6.95 H (< 5.00) mg/L Total Protein 7.8 (6.4-8.9) g/dL Albumin 4.5 (3.2-5.2) g/dL Globulin 3.3 (2-4) g/dL Albumin/Globulin Ratio 1.4 (1-3) Lipase 14 (11.0-82.0) U/L Microbiology and Other Data: Microbiology 10/29/16 21:25 Influenza Types A,B Antigen ([facility]) - Final Nasal Specimen received for Influenza A/B Molecular testing Assess/Plan/Problems-Billing Assessment: 81 yo F with h/o HTN, CAD(last stress test in 10/07 showed "low risk ", cath 2008- 2 stents), mod MR , EF 45% in 01/2016 Echo, , mild-mod pulm HTN, CKD stage 3, RA - Patient Problems (1) Abdominal pain Comment: and fever x 3 days. significant RLQ pain( pt has h/o SHANNAN, appy, ilsa in the past) Will re-CT to eval abd. consulted Dr. Ochoa. Cont Zosyn/IVF, clears for diet differential includes: colitis, gastroenteritis, renal stone. (2) Hypertension Comment: uncontrolled. will restart outpatient meds: hydralazine /Nitro patch Cont Coreg/Norvasc (3) Atherosclerotic cardiovascular disease Comment: no c/o CP Last stress test :low risk" on 10/07 Known CAD. cont ASA/Statin (4) CKD (chronic kidney disease) stage 3, GFR 30-59 ml/min Comment: creat at baseline (5) Arthritis Comment: H/o RA, on Leflunomide at home. will check stool C. diff since pt may be immunocompromised (6) DVT prophylaxis Comment: heparin sc Status and Disposition: inpatient
[2016-10-30] MEDS: Nitroglycerin 0.2 MG/HR PATCH* (5 MG) TRANSDERM SCH (10:13)
[2016-10-30] MEDS: NS 0.9% 1000 ML* 1,000 ML IV SCH (10:13)
[2016-10-30] MEDS: Morphine INJ* 4 MG/ML 1 ML SYRINGE IV PRN ×3 (11:01→21:11)
--- NOTE | 2016-10-30 13:14 | RAD ---
INDICATION: Right lower quadrant abdominal pain. Fever COMPARISON: CT October 29, 2016 TECHNIQUE: Axial source images were obtained from the hemidiaphragms to the symphysis pubis following administration of oral contrast only. Coronal and sagittal reconstructed images were acquired. Lung bases: There is mild atelectasis or scarring lung bases. There is minimal bronchiectatic change medial right lung base. Liver: The noncontrast CT appearance of the liver is essentially unremarkable and unchanged.. Gallbladder: Cholecystectomy. Extrahepatic ductal dilatation is likely related to post cholecystectomy state. Spleen: No focal masses on noncontrast evaluation. Pancreas: Mildly Limited evaluation. No focal pancreatic mass. No ductal dilatation. Adrenal glands: There is no evidence of adrenal mass. Kidneys: Noncontrast CT imaging of the kidneys demonstrates no renal mass or hydronephrosis. There is mild, bilateral, perinephric stranding, unchanged. There are tiny nonobstructive left renal calculi. There is a 2 mm calculus on the course left ureter or gonadal vein which could represent an obstructive ureteral calculus. Adenopathy: There is no evidence of adenopathy by size criteria. Fluid collections: There are no free or localized fluid collections. Vessels:The IVC appears normal. 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 GI tract: The stomach is distended. The may be some mucosal edema in the duodenum. Consider duodenitis in the appropriate clinical setting. There are extensive diverticula of the sigmoid and descending colon. There is no obstruction Pelvic organs: Hysterectomy. No adnexal mass Bladder: There are no bladder masses. Calcification perhaps related to a urethral diverticulum. Abdominal and pelvic soft tissues: The extraperitoneal abdominal and pelvic soft tissues appear normal.. Osseous structures: There are no acute osseous findings. Other: None IMPRESSION: 1. Cholecystectomy. Extrahepatic ductal dilatation may be related to post cholecystectomy state. 2. Mild gastric distention with possible distal gastric gastritis. Apparent mild mucosal thickening of the duodenum. Consider gastritis/duodenitis in the appropriate clinical setting. 3. Tiny nonobstructive left renal calculi and possible tiny nonobstructive proximal ureteral calculus. These are in the 1 to 2 mm range 4. Left colonic diverticula without CT evidence of acute diverticulitis. 5. 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
[2016-10-30] MEDS: hydrALAZINE TAB* 10 MG PO SCH ×2 (13:22→19:59)
[2016-10-30] MEDS: Atorvastatin* 20 MG TAB PO SCH (19:58)
[2016-10-30] MEDS: metroNIDAZOLE TAB* 250 MG PO SCH (19:59)
[2016-10-30] MEDS: Latanoprost 0.005%* 2.5 ml BTL BOTH EYES SCH (19:59)
[2016-10-30] MEDS: HYDROcodone/ACETAMIN 5-325 MG* 1 TAB PO PRN (19:59)
[2016-10-30] MEDS: CMC:Dorzolamide/Timolol OPTH (NF) 10 ML BOT BOTH EYES SCH (20:00)
[2016-10-30] MEDS: CMC:Brimonidine P 0.15%(NF) OPH SOL 5 ML BTL BOTH EYES SCH (20:00)
[2016-10-30] MEDS: Nitro Patch/OINT Remove PATCH OFF SCH (20:02)
--- NOTE | 2016-10-30 20:02 | CONSULT ---
Consult Consult: Surgery Consult Asked by Dr. Keller to evaluate a pt. with abdominal pain. Ms. Marcell Viadl is an 81 y.o. female who reports she has been having abdominal pain for 4 days. The pain started out of nowhere, and has persisted. She says the medication she has been receiving "hasn't come close to managing the pain". She denies nausea, vomiting, she has had some diarrhea, no constipation. She denies blood in the stool. She describes the pain as being in the right groin and she says it hurt to walk. She says it is like when she had gall bladder attacks years ago. PMHx: CKD, s/p [place], RA, HTN, CVA, GERD Meds: see med rec ALL: lisinopril FH: father and brother had cancers PE: general: WDWN female in NAD Vital Signs 10/29/16 10/29/16 10/29/16 20:30 21:00 21:01 Temperature Pulse Rate 104 99 100 Respiratory 20 28 27 Rate Blood Pressure 138/103 191/125 (mmHg) O2 Sat by Pulse 96 97 97 Oximetry 10/29/16 10/29/16 10/29/16 21:13 21:22 21:31 Temperature 97.4 F Pulse Rate 95 Respiratory 19 30 30 Rate Blood Pressure 197/78 (mmHg) O2 Sat by Pulse 97 Oximetry 10/29/16 10/29/16 10/29/16 21:56 21:57 22:00 Temperature Pulse Rate 95 88 Respiratory 25 23 Rate Blood Pressure 198/78 196/78 (mmHg) O2 Sat by Pulse 97 97 Oximetry 10/29/16 10/29/16 10/29/16 22:01 22:22 22:24 Temperature 101.4 F 97.4 F Pulse Rate 95 Respiratory 18 19 Rate Blood Pressure 197/78 (mmHg) O2 Sat by Pulse 97 Oximetry 10/29/16 10/29/16 10/29/16 22:31 22:44 23:43 Temperature Pulse Rate Respiratory 18 18 17 Rate Blood Pressure (mmHg) O2 Sat by Pulse Oximetry 10/29/16 10/30/16 10/30/16 23:44 01:43 03:16 Temperature 97.5 F Pulse Rate 76 Respiratory 17 17 16 Rate Blood Pressure 132/57 (mmHg) O2 Sat by Pulse 96 Oximetry 10/30/16 10/30/16 10/30/16 07:34 07:47 07:48 Temperature 97.4 F Pulse Rate 86 Respiratory 28 24 Rate Blood Pressure 183/74 (mmHg) O2 Sat by Pulse 100 99 Oximetry 10/30/16 10/30/16 10/30/16 07:58 08:47 11:01 Temperature Pulse Rate Respiratory 24 20 16 Rate Blood Pressure (mmHg) O2 Sat by Pulse Oximetry 10/30/16 10/30/16 10/30/16 11:55 13:13 16:02 Temperature 97.8 F Pulse Rate 90 91 Respiratory 16 Rate Blood Pressure 138/59 143/63 (mmHg) O2 Sat by Pulse 94 Oximetry 10/30/16 10/30/16 10/30/16 16:09 17:07 19:41 Temperature 97.6 F Pulse Rate 97 Respiratory 16 14 16 Rate Blood Pressure 162/67 (mmHg) O2 Sat by Pulse 96 Oximetry 10/30/16 19:59 Temperature Pulse Rate Respiratory 16 Rate Blood Pressure (mmHg) O2 Sat by Pulse Oximetry HEENT: anicteric sclerae, pink conjunctivae, moist oral mucosa, neg. cervical adenopathy lungs: clear to ausc. heart: reg. abd: good BS,soft, mildly tender in RLQ without guarding or rebound, no hernias appreciated. Well-healed midline scar. ext: neg. cyanosis, edema Intake & Output 10/30/16 10/30/16 10/30/16 06:59 14:59 22:59 Intake Total 583 0 1336 Output Total 0 Balance 583 0 1336 Intake: IV Fluids 583 835 NS (0.9%) 583 835 IVPB 171 ABX - ZOSYN 171 Oral 0 0 330 Output: Urine 0 Other: # Bowel Movements 1 Estimated Stool Amount Medium Laboratory Results - last 24 hr 10/29/16 10/30/16 10/30/16 21:45 06:27 06:27 WBC RBC Hgb Hct MCV MCH MCHC RDW Plt Count MPV Neut % (Auto) Lymph % (Auto) [place] % (Auto) Eos % (Auto) Baso % (Auto) Absolute Neuts (auto) Absolute Lymphs (auto) Absolute Monos (auto) Absolute Eos (auto) Absolute Basos (auto) Absolute Nucleated RBC Nucleated RBC % INR (Anticoag Therapy) Sodium 142 Potassium 3.7 Chloride 111 Carbon Dioxide 20 L Anion Gap 11 BUN 31 H Creatinine 2.16 H Est GFR ( Amer) 28.2 Est GFR (Non-Af Amer) 21.9 BUN/Creatinine Ratio 14.4 Glucose 108 H Lactic Acid 1.1 Calcium 9.4 Urine Color Straw Urine Appearance Clear Urine pH 7.0 Ur Specific [place] 1.008 L Urine Protein 2+(100 mg/dl) H Urine Ketones Trace H Urine Blood 1+ H Urine Nitrate Negative Urine Bilirubin Negative Urine Urobilinogen Negative Ur Leukocyte Esterase Negative Urine WBC (Auto) Trace(0-5/hpf) Urine RBC (Auto) Trace(0-2/hpf) Urine Bacteria Absent Urine Glucose Negative 10/30/16 10/30/16 06:27 06:27 WBC 11.2 H RBC 3.76 L Hgb 11.8 L Hct 36 MCV 95 MCH 31 MCHC 33 RDW 13 Plt Count 204 MPV 9 Neut % (Auto) 71.7 Lymph % (Auto) 17.1 L [place] % (Auto) 7.8 Eos % (Auto) 2.1 Baso % (Auto) 1.3 Absolute Neuts (auto) 8.1 H Absolute Lymphs (auto) 1.9 Absolute Monos (auto) 0.9 H Absolute Eos (auto) 0.2 Absolute Basos (auto) 0.1 Absolute Nucleated RBC 0 Nucleated RBC % 0 INR (Anticoag Therapy) 0.94 Sodium Potassium Chloride Carbon Dioxide Anion Gap BUN Creatinine Est GFR ( Amer) Est GFR (Non-Af Amer) BUN/Creatinine Ratio Glucose Lactic Acid Calcium Urine Color Urine Appearance Urine pH Ur Specific [place] Urine Protein Urine Ketones Urine Blood Urine Nitrate Urine Bilirubin Urine Urobilinogen Ur Leukocyte Esterase Urine WBC (Auto) Urine RBC (Auto) Urine Bacteria Urine Glucose CT scan shows no obvious pathology, but stomach and bladder are very distended. A/P: Consider check residual in bladder and NGT if discomfort persists. Abdominal pain without obvious exam correlate. Agree with current management to cover kidney stones, gastroenteritis etc. Consider GI consult. CLFoster
[2016-10-31] MEDS: Piperac/Tazob 3.375 gm in NS* 3.375 GM/100 ML BAG IVPB SCH ×2 (01:35→14:16)
[2016-10-31] MEDS: NS 0.9% 1000 ML* 1,000 ML IV SCH ×2 (01:41→14:37)
[2016-10-31] MEDS: Heparin VIAL(*) 5000 UNITS/ML VIAL (FIVE THOUSAND) SUBCUT SCH ×3 (05:09→21:57)
[2016-10-31 06:21] LABS: Hematocrit 34 % (35-47); Mean Corpuscular HGB Conc 33 g/dl (31-36); Mean Corpuscular Hemoglobin 32 pg (27-31); Mean Corpuscular Volume 97 fL (80-97); Mean Platelet Volume 9 um3 (7.4-10.4); Red Blood Count 3.48 10^6/ul (4.0-5.4); Red Cell Distribution Width 14 % (10.5-15); White Blood Count 11.2 10^3/ul (3.5-10.8)
[2016-10-31 06:42] LABS: Albumin 3.6 g/dL (3.2-5.2); BUN/Creatinine Ratio 12.7 (8-20); C Reactive Protein 4.01 mg/L (< 5.00); Calcium 9.1 mg/dL (8.6-10.3); EGFR African American 31.4 (>60); EGFR Non-African American 24.4 (>60); Globulin 2.7 g/dL (2-4); Potassium 3.1 mmol/L (3.5-5.0); Total Bilirubin 0.5 mg/dL (0.2-1.0); Total Protein 6.3 g/dL (6.4-8.9)
[2016-10-31] MEDS ORDERED: Potassium Chlor TAB* 20 MEQ TAB.ER PO ONE (07:14)
[2016-10-31] MEDS: HYDROcodone/ACETAMIN 5-325 MG* 1 TAB PO PRN ×2 (07:57→20:29)
[2016-10-31] MEDS: Morphine INJ* 4 MG/ML 1 ML SYRINGE IV PRN ×4 (08:22→21:58)
--- NOTE | 2016-10-31 08:41 | PN ---
Subjective Date of Service: 10/31/16 Interval History: pt continues to c/o of RLQ, suprapubic pain, radiating to R groin. No appetite, slightly nauseated. Large amount of diarrhea this am, but contaminated and couldn't be sent for c. Diff. Pain unchanged x 3 days Objective Active Medications: Acetaminophen (Tylenol Tab*) 650 mg PO Q4H PRN PRN Reason: FEVER/PAIN Hydrocodone Bitart/Acetaminophen ([place] 5-325 Tab*) 1 tab PO Q8H PRN PRN Reason: PAIN - BACK Last Admin: 10/31/16 07:57 Dose: 1 tab Amlodipine Besylate (Norvasc Tab*) 10 mg PO DAILY [facility] Last Admin: 10/30/16 07:51 Dose: 10 mg Aspirin (Aspirin Low Dose Tab*) 81 mg PO DAILY [facility] Last Admin: 10/30/16 07:51 Dose: 81 mg Atorvastatin Calcium (Lipitor*) 20 mg PO BEDTIME [facility]O PRN Reason: Protocol Last Admin: 10/30/16 19:58 Dose: 20 mg Brimonidine Tartrate (Alphagan P 0.15%(Nf)) 1 drop BOTH EYES BID [facility] Last Admin: 10/30/16 20:00 Dose: 1 drop Carvedilol (Coreg Tab*) 25 mg PO BID [facility] Last Admin: 10/30/16 19:59 Dose: 25 mg Cyclobenzaprine HCl (Flexeril Tab*) 5 mg PO BEDTIME PRN PRN Reason: SPASMS Dorzolamide/Timolol (Cosopt (Nf)) 1 drop BOTH EYES BID [facility] PRN Reason: Protocol Last Admin: 10/30/16 20:00 Dose: 1 drop Heparin Sodium (Porcine) (Heparin Vial(*)) 5,000 units SUBCUT Q8HR [facility] Last Admin: 10/31/16 05:09 Dose: 5,000 units Hydralazine HCl (Apresoline Iv*) 5 mg IV SLOW PU Q6H PRN PRN Reason: BLOOD PRESSURE Last Admin: 10/30/16 07:47 Dose: 5 mg Hydralazine HCl (Apresoline Tab*) 10 mg PO TID [facility] Last Admin: 10/30/16 19:59 Dose: 10 mg Sodium Chloride (Ns 0.9% 1000 Ml*) 1,000 mls @ 100 mls/hr IV PER RATE [facility] Last Admin: 10/31/16 01:41 Dose: 100 mls/hr Piperacillin Sod/Tazobactam Sod (Zosyn 3.375 Gm In Ns Premix*) 3.375 gm in 100 mls @ 25 mls/hr IVPB Q12H [facility] Last Admin: 10/31/16 01:35 Dose: 25 mls/hr Latanoprost (Xalatan 0.005%*) 1 drop BOTH EYES BEDTIME [facility] Last Admin: 10/30/16 19:59 Dose: 1 drop Metronidazole (Flagyl Tab*) 500 mg PO TID [facility] Last Admin: 10/30/16 19:59 Dose: 500 mg Morphine Sulfate (Morphine Inj (Syringe)*) 4 mg IV Q2H PRN PRN Reason: PAIN Last Admin: 10/31/16 08:22 Dose: 4 mg Nitroglycerin (Nitroglycerin 5 Mg Patch*) 1 patch TRANSDERM DAILY [facility] Last Admin: 10/30/16 10:13 Dose: 1 patch Ondansetron HCl (Zofran Inj*) 4 mg IV Q6H PRN PRN Reason: NAUSEA Pharmacy Profile Note (Nitro Patch/Oint Remove*) 1 note PATCH OFF 2100 [facility] Last Admin: 10/30/16 20:02 Dose: 1 patch Vital Signs 10/30/16 10/30/16 10/30/16 08:47 11:01 11:55 Temperature Pulse Rate Respiratory 20 16 16 Rate Blood Pressure (mmHg) O2 Sat by Pulse Oximetry 10/30/16 10/30/16 10/30/16 13:13 16:02 16:09 Temperature 97.8 F Pulse Rate 90 91 Respiratory 16 Rate Blood Pressure 138/59 143/63 (mmHg) O2 Sat by Pulse 94 Oximetry 10/30/16 10/30/16 10/30/16 17:07 19:41 19:59 Temperature 97.6 F Pulse Rate 97 Respiratory 14 16 16 Rate Blood Pressure 162/67 (mmHg) O2 Sat by Pulse 96 Oximetry 10/30/16 10/30/16 10/30/16 20:00 21:11 21:59 Temperature Pulse Rate Respiratory 18 18 18 Rate Blood Pressure (mmHg) O2 Sat by Pulse Oximetry 10/30/16 10/30/16 10/31/16 22:11 23:13 07:28 Temperature 97.6 F 97.7 F Pulse Rate 91 94 Respiratory 18 19 16 Rate Blood Pressure 161/67 184/74 (mmHg) O2 Sat by Pulse 95 93 Oximetry 10/31/16 10/31/16 07:57 08:22 Temperature Pulse Rate Respiratory 20 20 Rate Blood Pressure (mmHg) O2 Sat by Pulse Oximetry Oxygen Devices in Use Now: None Appearance: 81 yo F in nAd, aAOx3 Eyes: No Scleral Icterus, PERRLA Ears/Nose/Mouth/Throat: NL Teeth, Lips, Gums, Mucous Membranes Moist Neck: NL Appearance and Movements; NL JVP, Trachea Midline Respiratory: Symmetrical Chest Expansion and Respiratory Effort, Clear to Auscultation Cardiovascular: NL Sounds; No Murmurs; No JVD, RRR Abdominal: - - suprapubic tenderness, no rebound, no guarding, BS+ Lymphatic: No Cervical Adenopathy Extremities: No Clubbing, Cyanosis Skin: No Rash or Ulcers, No Nodules or Sclerosis Neurological: Alert and Oriented x 3, NL Muscle Strength and Tone Result Diagrams: 10/31/16 05:59 10/31/16 05:59 Additional Lab and Data: Lab Results 10/29/16 10/29/16 10/29/16 Range/Units 16:29 16:29 16:29 WBC 10.0 (3.5-10.8) 10^3/ul RBC 4.10 (4.0-5.4) 10^6/ul Hgb 12.8 (12.0-16.0) g/dl Hct 38 (35-47) % MCV 94 (80-97) fL MCH 31 (27-31) pg MCHC 33 (31-36) g/dl RDW 13 (10.5-15) % Plt Count 205 (150-450) 10^3/ul MPV 9 (7.4-10.4) um3 Neut % (Auto) 77.7 (38-83) % Lymph % (Auto) 14.2 L (25-47) % [place] % (Auto) 6.0 (1-9) % Eos % (Auto) 1.1 (0-6) % Baso % (Auto) 1.0 (0-2) % Absolute Neuts (auto) 7.8 H (1.5-7.7) 10^3/ul Absolute Lymphs (auto) 1.4 (1.0-4.8) 10^3/ul Absolute Monos (auto) 0.6 (0-0.8) 10^3/ul Absolute Eos (auto) 0.1 (0-0.6) 10^3/ul Absolute Basos (auto) 0.1 (0-0.2) 10^3/ul Absolute Nucleated RBC 0.01 10^3/ul Nucleated RBC % 0.1 Sodium 139 (133-145) mmol/L Potassium 4.0 (3.5-5.0) mmol/L Chloride 105 (101-111) mmol/L Carbon Dioxide 21 L (22-32) mmol/L Anion Gap 13 H (2-11) mmol/L BUN 35 H (6-24) mg/dL Creatinine 2.22 H (0.51-0.95) mg/dL Est GFR ( Amer) 27.3 (>60) Est GFR (Non-Af Amer) 21.3 (>60) BUN/Creatinine Ratio 15.8 (8-20) Glucose 111 H (70-100) mg/dL Lactic Acid 1.4 (0.5-2.0) mmol/L Calcium 10.4 H (8.6-10.3) mg/dL Total Bilirubin 0.50 (0.2-1.0) mg/dL AST 23 (13-39) U/L ALT 12 (7-52) U/L Alkaline Phosphatase 96 (34-104) U/L C-Reactive Protein 6.95 H (< 5.00) mg/L Total Protein 7.8 (6.4-8.9) g/dL Albumin 4.5 (3.2-5.2) g/dL Globulin 3.3 (2-4) g/dL Albumin/Globulin Ratio 1.4 (1-3) Lipase 14 (11.0-82.0) U/L Microbiology and Other Data: Microbiology 10/29/16 21:25 Influenza Types A,B Antigen ([facility]) - Final Nasal Specimen received for Influenza A/B Molecular testing Assess/Plan/Problems-Billing Assessment: 81 yo F with h/o HTN, CAD(last stress test in 10/07 showed "low risk ", cath 2008- 2 stents), mod MR , EF 45% in 01/2016 Echo, , mild-mod pulm HTN, CKD stage 3, RA - Patient Problems (1) Abdominal pain Comment: and fever x 4 days. flu test pending (obtained on 10/29/16-no results reported still, lab notified) [address] abd show possible gastric distention and gastritis, nonobstructive kidney stones. Dr. Ochoa's consult appreciated. Cont Zosyn/IVF, Flagyl PO added due to pt being immunocompromised 0n 10/30/16(on Leflunomide) clears for diet differential includes: colitis, gastroenteritis, renal stone. Renal US pending today. GI consulted (2) Hypertension Comment: uncontrolled-did not get her AM meds yet: hydralazine /Nitro patch Cont Coreg/Norvasc (3) Atherosclerotic cardiovascular disease Comment: no c/o CP Last stress test :low risk" on 10/07 Known CAD. cont ASA/Statin (4) CKD (chronic kidney disease) stage 3, GFR 30-59 ml/min Comment: creat at baseline (5) Arthritis Comment: H/o RA, on Leflunomide at home. stool C. diff pending (6) DVT prophylaxis Comment: heparin sc Status and Disposition: inpatient
--- NOTE | 2016-10-31 09:37 | RAD ---
HISTORY: Right lower quadrant and groin pain, COMPARISONS: CT dated October 30, 2016 TECHNIQUE: Multiple transverse and longitudinal ultrasound images were obtained of the kidneys and bladder using grayscale and color Doppler imaging. 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 There is no hydronephrosis or nephrolithiasis. The right kidney measures 6.7 x 3.5 x 3.9 cm. LEFT KIDNEY: The left kidney is atrophic/hypoplastic. There is a simple cyst of the lower pole of left kidney measuring 1.2 cm. There is no hydronephrosis or nephrolithiasis. The left kidney measures 7.3 x 4.6 x 4.5 cm. BLADDER: The bladder is distended. Bilateral ureteral jets are noted. The bladder is smooth in contour. The prevoid bladder volume is 619 milliliters.. The postvoid bladder volume is 469 milliliters. AORTA AND IVC: No images are submitted of the vasculature. RETROPERITONEUM: Unremarkable. OTHER: None. IMPRESSION: 1. NO HYDRONEPHROSIS OR NEPHROLITHIASIS. 2. DISTENDED BLADDER, WITH 469 ML POSTVOID RESIDUAL
[2016-10-31] MEDS: CMC:Dorzolamide/Timolol OPTH (NF) 10 ML BOT BOTH EYES SCH ×2 (09:54→20:30)
[2016-10-31] MEDS: CMC:Brimonidine P 0.15%(NF) OPH SOL 5 ML BTL BOTH EYES SCH ×2 (09:55→20:30)
[2016-10-31] MEDS: amLODIPine TAB* 5 MG PO SCH (09:57)
[2016-10-31] MEDS: metroNIDAZOLE TAB* 250 MG PO SCH ×3 (09:57→20:30)
[2016-10-31] MEDS: Aspirin Low Dose CHEW TAB* 81 MG PO SCH (09:57)
[2016-10-31] MEDS: Carvedilol TAB* 25 MG PO SCH ×2 (09:58→20:30)
[2016-10-31] MEDS: Pantoprazole IV* 40 MG IV SCH (09:58)
[2016-10-31] MEDS: Nitroglycerin 0.2 MG/HR PATCH* (5 MG) TRANSDERM SCH (09:58)
[2016-10-31] MEDS: hydrALAZINE TAB* 10 MG PO SCH ×3 (09:58→20:30)
[2016-10-31 13:19] LABS: Urine Bacteria Absent (Absent); Urine Bilirubin Negative (Negative); Urine Glucose Negative (Negative); Urine Nitrite Negative (Negative)
--- NOTE | 2016-10-31 15:11 | SURGPN ---
Subjective - Introduction -: Reports doing the same. Still c/o intermittent R groin and RLQ abdominal pain, worse with some movements, especially when getting out of bed. Denies N/V, fever or chills. - Medications -: Active Medications Generic Name Dose Route Start Last Admin Trade Name Freq PRN Reason Stop Dose Admin Acetaminophen 650 mg 10/29/16 20:17 Tylenol Tab* PO Q4H PRN FEVER/PAIN Hydrocodone Bitart/Acetaminophen 1 tab 10/29/16 20:22 10/31/16 07:57 [place] 5-325 Tab* PO 1 tab Q8H PRN Administration PAIN - BACK Amlodipine Besylate 10 mg 10/30/16 09:00 10/31/16 09:57 Norvasc Tab* PO 10 mg DAILY [facility]AGO Administration Aspirin 81 mg 10/30/16 09:00 10/31/16 09:57 Aspirin Low Dose Tab* PO 81 mg DAILY S[facility]AGO Administration Atorvastatin Calcium 20 mg 10/29/16 21:00 10/30/16 19:58 Lipitor* PO 20 mg BEDTIME SANTIAGO Administration Protocol Brimonidine Tartrate 1 drop 10/30/16 21:00 10/31/16 09:55 Alphagan P 0.15%(Nf) BOTH EYES 1 drop BID SANTIAGO Administration Carvedilol 25 mg 10/29/16 21:00 10/31/16 09:58 Coreg Tab* PO 25 mg BID SANTIAGO Administration Cyclobenzaprine HCl 5 mg 10/29/16 20:22 Flexeril Tab* PO BEDTIME PRN SPASMS Dorzolamide/Timolol 1 drop 10/30/16 21:00 10/31/16 09:54 Cosopt (Nf) BOTH EYES 1 drop BID SANTIAGO Administration Protocol Heparin Sodium (Porcine) 5,000 units 10/29/16 22:00 10/31/16 14:14 Heparin Vial(*) SUBCUT 5,000 units Q8HR SANTIAGO Administration Hydralazine HCl 5 mg 10/29/16 20:26 10/30/16 07:47 Apresoline Iv* IV SLOW PU 5 mg Q6H PRN Administration BLOOD PRESSURE Hydralazine HCl 10 mg 10/30/16 14:00 10/31/16 14:16 Apresoline Tab* PO 10 mg TID SANTIAGO Administration Sodium Chloride 1,000 mls @ 100 mls/hr 10/29/16 20:30 10/31/16 14:37 Ns 0.9% 1000 Ml* IV 100 mls/hr PER RATE SANTIAGO Administration Piperacillin Sod/Tazobactam Sod 3.375 gm in 100 mls @ 25 mls/hr 10/30/16 02: 00 10/31/16 14:16 Zosyn 3.375 Gm In Ns Premix* IVPB 25 mls/hr Q12H SANTIAGO Administration Latanoprost 1 drop 10/29/16 21:00 10/30/16 19:59 Xalatan 0.005%* BOTH EYES 1 drop BEDTIME SANTIAGO Administration Metronidazole 500 mg 10/30/16 21:00 10/31/16 14:15 Flagyl Tab* PO 500 mg TID SANTIAGO Administration Morphine Sulfate 4 mg 10/30/16 10:45 10/31/16 11:28 Morphine Inj (Syringe)* IV 4 mg Q2H PRN Administration PAIN Nitroglycerin 1 patch 10/30/16 10:00 10/31/16 09:58 Nitroglycerin 5 Mg Patch* TRANSDERM 1 patch DAILY SANTIAGO Administration Ondansetron HCl 4 mg 10/29/16 20:17 Zofran Inj* IV Q6H PRN NAUSEA Pantoprazole Sodium 40 mg 10/31/16 09:00 10/31/16 09:58 Protonix Iv* IV 40 mg Q24H SANTIAGO Administration Pharmacy Profile Note 1 note 10/30/16 21:00 10/30/16 20:02 Nitro Patch/Oint Remove* PATCH OFF 1 patch 2100 SANTIAGO Administration Objective - Objective -: Awake and alert, laying on bed, appears comfortable and in NAD. - Intake and Output -: Intake & Output 10/29/16 10/30/16 10/31/16 11/01/16 06:59 06:59 06:59 06:59 Intake Total 625 2690 780 Output Total 500 Balance 125 2690 780 Weight 109 lb 6.4 oz Intake: IV Fluids 625 1759 611 NS (0.9%) 625 1759 611 IVPB 271 19 ABX - ZOSYN 271 19 Oral 0 660 150 Output: Urine 500 Other: Estimated Void Medium # Bowel Movements 1 1 2 Estimated Stool Amount Medium Small Medium # Voids 2 2 Surgical Physical Exam - Comments -: VSS, afebrile Lungs CTA bilat. Abdomen soft, ND. Mild RLQ tenderness noted, no guarding or rebound. No hernias noted. Odom with clear urine Assessment and Plan - Assessment -: An 81 y/o female with intermittent R groin and RLQ pain of unclear etiology. - Plan Additional Comments: I had a long discussion with patient regarding her pain and the findings of her exam and other diagnostic tests. I didn't appreciate any hernia on exam. Await GI consult in that regard. Last colonoscopy over 5 years ago, normal per patient. She has been moving her bowels with no difficulty. Also discussed possible diagnostic laparoscopy if still in pain with no clear etiology, may sometime in the near future. Will follow up with her accordingly.
[2016-10-31] MEDS: Ondansetron INJ* 2 MG/ML VIAL IV PRN (16:00)
--- NOTE | 2016-10-31 16:14 | CONS ---
GASTROENTEROLOGY CONSULTATION DATE OF CONSULTATION: 10/31/2016. REQUESTING PHYSICIAN: Dr. Keller. INDICATION: Groin pain. HISTORY OF PRESENT ILLNESS: Ms. Marcell Vidal is a very pleasant, 81-year-old female who is admitted for right groin pain. She states it has been present for four days. No radiation of the pain. She denies any recent injuries or traumas or falls. She was seen in the emergency room and was diagnosed with constipation. The patient tells me she had been moving her bowels every day and did not feel constipated, however was given an enema. Since that point she has had mushy stools. She went home and was told if the pain worsened to come back. The pain did worsen, she came back. A CT did not show any ominous findings. It does show from a GI standpoint, moderate to severe diverticulosis and a thickened gastric antrum. The patient denies any nausea, vomiting, GERD or dysphagia. No abdominal pain at all. No constipation. She does have loose stools now, she feels secondary to the enema she received in the emergency room. She denies any aspirin or ibuprofen. She was seen by surgical consultation who did not see any surgical reason for her abdominal pain. PAST MEDICAL HISTORY: Significant for coronary artery disease, status post VA, rheumatoid arthritis, hypertension, chronic kidney disease, TIA, GERD, hiatal hernia. PAST SURGICAL HISTORY: Coronary artery catheterization, appendectomy, cholecystectomy, hysterectomy, cataracts, carpal tunnel. MEDICATIONS: Norvasc, Lipitor, Coreg, Flexeril, Cosopt, Xalatan, nitroglycerin patch. ALLERGIES: LISINOPRIL. FAMILY HISTORY: Coronary artery disease. SOCIAL HISTORY: Rarely drinks alcohol, no tobacco. REVIEW OF SYSTEMS: Twelve systems were reviewed. Other than that mentioned in the HPI are unremarkable. PHYSICAL EXAM: General: Well-appearing female lying flat in bed, alert, oriented, pleasant, fluent. Vital Signs: Temperature 98.1, blood pressure 135/ 61, pulse 83, respiratory rate 15. HEENT: Mucus membranes are moist without lesions, ulcers, or exudate. Head is normocephalic atraumatic. Neck: Supple. Trachea midline. Heart: Regular rate and rhythm. Lungs: Clear to auscultation. Abdomen positive bowel sounds, soft, nondistended. No hepatosplenomegaly, masses, rebound or guarding. She is tender in the right groin. Skin is warm and dry. LABORATORY DATA: Of note, white count is 11.2, hemoglobin 11, platelets 171, BUN 25, creatinine 1.97. ASSESSMENT AND PLAN: An 81-year-old female with right groin pain. I really do not see a good GI explanation for her pain. It does seem to be somewhat low for a GI source. She does have a recent normal CT, except for the gastric antral thickening which could be H. pylori, which I will check a serum H. pylori for. Likely this is a red pozo. Her last colonoscopy by her report was normal. She really does not admit to any GI symptoms. I wonder if there could be some sort of musculoskeletal etiology for her pain. Will continue to follow along. CC: Dr. Null* [id number]/CPS #: [id number] ANGELA
[2016-10-31] MEDS: Atorvastatin* 20 MG TAB PO SCH (20:29)
[2016-10-31] MEDS: Latanoprost 0.005%* 2.5 ml BTL BOTH EYES SCH (20:31)
[2016-10-31] MEDS: Nitro Patch/OINT Remove PATCH OFF SCH (20:31)
[2016-11-01] MEDS: Piperac/Tazob 3.375 gm in NS* 3.375 GM/100 ML BAG IVPB SCH (01:45)
[2016-11-01] MEDS: Heparin VIAL(*) 5000 UNITS/ML VIAL (FIVE THOUSAND) SUBCUT SCH ×3 (05:24→22:31)
[2016-11-01 07:13] LABS: Hematocrit 32 % (35-47); Hemoglobin 10.7 g/dl (12.0-16.0); Mean Corpuscular HGB Conc 33 g/dl (31-36); Mean Corpuscular Hemoglobin 32 pg (27-31); Mean Corpuscular Volume 96 fL (80-97); Mean Platelet Volume 9 um3 (7.4-10.4); Red Blood Count 3.34 10^6/ul (4.0-5.4); Red Cell Distribution Width 14 % (10.5-15); White Blood Count 9.9 10^3/ul (3.5-10.8)
[2016-11-01 07:27] LABS: BUN/Creatinine Ratio 9.8 (8-20); C Reactive Protein 3.35 mg/L (< 5.00); EGFR African American 31.9 (>60); EGFR Non-African American 24.8 (>60); Potassium 3.3 mmol/L (3.5-5.0)
[2016-11-01] MEDS: Ondansetron INJ* 2 MG/ML VIAL IV PRN (10:03)
[2016-11-01] MEDS: metroNIDAZOLE TAB* 250 MG PO SCH (10:08)
[2016-11-01] MEDS: amLODIPine TAB* 5 MG PO SCH (10:09)
[2016-11-01] MEDS: hydrALAZINE TAB* 10 MG PO SCH ×3 (10:09→22:27)
[2016-11-01] MEDS: Aspirin Low Dose CHEW TAB* 81 MG PO SCH (10:10)
[2016-11-01] MEDS: Nitroglycerin 0.2 MG/HR PATCH* (5 MG) TRANSDERM SCH ×2 (10:10→10:16)
[2016-11-01] MEDS: Carvedilol TAB* 25 MG PO SCH ×2 (10:10→22:27)
[2016-11-01] MEDS: Pantoprazole IV* 40 MG IV SCH (10:10)
[2016-11-01] MEDS: CMC:Dorzolamide/Timolol OPTH (NF) 10 ML BOT BOTH EYES SCH ×2 (10:18→22:29)
[2016-11-01] MEDS: CMC:Brimonidine P 0.15%(NF) OPH SOL 5 ML BTL BOTH EYES SCH ×2 (10:18→22:28)
[2016-11-01] MEDS: KCL 10 MEQ/50 ML IVPREMIX* 10 MEQ/50 ML BAG IV SCH ×2 (11:20→15:04)
--- NOTE | 2016-11-01 12:59 | PN ---
Subjective Date of Service: 11/01/16 Interval History: Pt reported no pain this am. Apparently in middle of night she went to the bathroom, had another loose BM and the pain resolved. Objective Active Medications: Acetaminophen (Tylenol Tab*) 650 mg PO Q4H PRN PRN Reason: FEVER/PAIN Hydrocodone Bitart/Acetaminophen ([place] 5-325 Tab*) 1 tab PO Q8H PRN PRN Reason: PAIN - BACK Last Admin: 10/31/16 20:29 Dose: 1 tab Amlodipine Besylate (Norvasc Tab*) 10 mg PO DAILY [facility] Last Admin: 11/01/16 10:09 Dose: 10 mg Aspirin (Aspirin Low Dose Tab*) 81 mg PO DAILY [facility] Last Admin: 11/01/16 10:10 Dose: 81 mg Atorvastatin Calcium (Lipitor*) 20 mg PO BEDTIME [facility] PRN Reason: Protocol Last Admin: 10/31/16 20:29 Dose: 20 mg Brimonidine Tartrate (Alphagan P 0.15%(Nf)) 1 drop BOTH EYES BID [facility] Last Admin: 11/01/16 10:18 Dose: Not Given Carvedilol (Coreg Tab*) 25 mg PO BID [facility] Last Admin: 11/01/16 10:10 Dose: 25 mg Cyclobenzaprine HCl (Flexeril Tab*) 5 mg PO BEDTIME PRN PRN Reason: SPASMS Dorzolamide/Timolol (Cosopt (Nf)) 1 drop BOTH EYES BID [facility] PRN Reason: Protocol Last Admin: 11/01/16 10:18 Dose: Not Given Heparin Sodium (Porcine) (Heparin Vial(*)) 5,000 units SUBCUT Q8HR [facility] Last Admin: 11/01/16 05:24 Dose: 5,000 units Hydralazine HCl (Apresoline Iv*) 5 mg IV SLOW PU Q6H PRN PRN Reason: BLOOD PRESSURE Last Admin: 10/30/16 07:47 Dose: 5 mg Hydralazine HCl (Apresoline Tab*) 10 mg PO TID [facility] Last Admin: 11/01/16 10:09 Dose: 10 mg Potassium Chloride (Potassium Chloride 10 Meq/50 Ml Ivpremix*) 10 meq in 50 mls @ 50 mls/hr IV Q2H [facility] Stop: 11/01/16 13:59 Last Admin: 11/01/16 11:20 Dose: 50 mls/hr Latanoprost (Xalatan 0.005%*) 1 drop BOTH EYES BEDTIME [facility] Last Admin: 10/31/16 20:31 Dose: 1 drop Morphine Sulfate (Morphine Inj (Syringe)*) 4 mg IV Q2H PRN PRN Reason: PAIN Last Admin: 10/31/16 21:58 Dose: 4 mg Nitroglycerin (Nitroglycerin 5 Mg Patch*) 1 patch TRANSDERM DAILY [facility] Last Admin: 11/01/16 10:16 Dose: 1 patch Ondansetron HCl (Zofran Inj*) 4 mg IV Q6H PRN PRN Reason: NAUSEA Last Admin: 11/01/16 10:03 Dose: 4 mg Pantoprazole Sodium (Protonix Iv*) 40 mg IV Q24H [facility] Last Admin: 11/01/16 10:10 Dose: 40 mg Pharmacy Profile Note (Nitro Patch/Oint Remove*) 1 note PATCH OFF 2100 [facility] Last Admin: 10/31/16 20:31 Dose: 1 patch Vital Signs 10/31/16 10/31/16 10/31/16 13:56 15:56 16:00 Temperature 98.1 F 98 F Pulse Rate 83 83 Respiratory 16 12 18 Rate Blood Pressure 135/61 148/64 (mmHg) O2 Sat by Pulse 95 95 Oximetry 10/31/16 10/31/16 10/31/16 17:00 20:00 20:29 Temperature Pulse Rate Respiratory 16 16 16 Rate Blood Pressure (mmHg) O2 Sat by Pulse Oximetry 10/31/16 10/31/16 10/31/16 21:58 22:29 22:58 Temperature Pulse Rate Respiratory 18 16 16 Rate Blood Pressure (mmHg) O2 Sat by Pulse Oximetry 10/31/16 11/01/16 11/01/16 23:13 00:00 07:16 Temperature 97.9 F 98.0 F Pulse Rate 74 82 Respiratory Rate Blood Pressure 146/50 174/59 (mmHg) O2 Sat by Pulse 94 94 95 Oximetry 11/01/16 07:23 Temperature Pulse Rate Respiratory Rate Blood Pressure (mmHg) O2 Sat by Pulse 99 Oximetry Oxygen Devices in Use Now: None Appearance: 81 yo F in nAd, aAOx3 Eyes: No Scleral Icterus, PERRLA Ears/Nose/Mouth/Throat: NL Teeth, Lips, Gums, Mucous Membranes Moist Neck: NL Appearance and Movements; NL JVP, Trachea Midline Respiratory: Symmetrical Chest Expansion and Respiratory Effort, Clear to Auscultation Cardiovascular: NL Sounds; No Murmurs; No JVD, RRR Abdominal: NL Sounds; No Tenderness; No Distention Lymphatic: No Cervical Adenopathy Extremities: No Edema, No Clubbing, Cyanosis Skin: No Rash or Ulcers, No Nodules or Sclerosis Neurological: Alert and Oriented x 3, NL Muscle Strength and Tone Result Diagrams: 11/01/16 06:40 11/01/16 06:40 Additional Lab and Data: Lab Results 10/29/16 10/29/16 10/29/16 Range/Units 16:29 16:29 16:29 WBC 10.0 (3.5-10.8) 10^3/ul RBC 4.10 (4.0-5.4) 10^6/ul Hgb 12.8 (12.0-16.0) g/dl Hct 38 (35-47) % MCV 94 (80-97) fL MCH 31 (27-31) pg MCHC 33 (31-36) g/dl RDW 13 (10.5-15) % Plt Count 205 (150-450) 10^3/ul MPV 9 (7.4-10.4) um3 Neut % (Auto) 77.7 (38-83) % Lymph % (Auto) 14.2 L (25-47) % [place] % (Auto) 6.0 (1-9) % Eos % (Auto) 1.1 (0-6) % Baso % (Auto) 1.0 (0-2) % Absolute Neuts (auto) 7.8 H (1.5-7.7) 10^3/ul Absolute Lymphs (auto) 1.4 (1.0-4.8) 10^3/ul Absolute Monos (auto) 0.6 (0-0.8) 10^3/ul Absolute Eos (auto) 0.1 (0-0.6) 10^3/ul Absolute Basos (auto) 0.1 (0-0.2) 10^3/ul Absolute Nucleated RBC 0.01 10^3/ul Nucleated RBC % 0.1 Sodium 139 (133-145) mmol/L Potassium 4.0 (3.5-5.0) mmol/L Chloride 105 (101-111) mmol/L Carbon Dioxide 21 L (22-32) mmol/L Anion Gap 13 H (2-11) mmol/L BUN 35 H (6-24) mg/dL Creatinine 2.22 H (0.51-0.95) mg/dL Est GFR ( Amer) 27.3 (>60) Est GFR (Non-Af Amer) 21.3 (>60) BUN/Creatinine Ratio 15.8 (8-20) Glucose 111 H (70-100) mg/dL Lactic Acid 1.4 (0.5-2.0) mmol/L Calcium 10.4 H (8.6-10.3) mg/dL Total Bilirubin 0.50 (0.2-1.0) mg/dL AST 23 (13-39) U/L ALT 12 (7-52) U/L Alkaline Phosphatase 96 (34-104) U/L C-Reactive Protein 6.95 H (< 5.00) mg/L Total Protein 7.8 (6.4-8.9) g/dL Albumin 4.5 (3.2-5.2) g/dL Globulin 3.3 (2-4) g/dL Albumin/Globulin Ratio 1.4 (1-3) Lipase 14 (11.0-82.0) U/L Microbiology and Other Data: Microbiology 10/29/16 21:25 Influenza Types A,B Antigen ([facility]) - Final Nasal Specimen received for Influenza A/B Molecular testing Assess/Plan/Problems-Billing Assessment: 81 yo F with h/o HTN, CAD(last stress test in 10/07 showed "low risk ", cath 2008- 2 stents), mod MR , EF 45% in 01/2016 Echo, , mild-mod pulm HTN, CKD stage 3, RA - Patient Problems (1) Abdominal pain Comment: and fever x 4 days-resolved. No fever x over 24H, pain resolved suddenly last night. flu test neg [address] abd show possible gastric distention and gastritis, nonobstructive kidney stones. Dr. Ochoa's consult appreciated. Zosyn/IVF, Flagyl PO will be discontinued since no clear source of infection was identified. will monitor pt x 24H and possible d/c afterwards. GI consult appreciated (2) Hypertension Comment: under beter control, cont hydralazine /Nitro patch Cont Coreg/Norvasc (3) Atherosclerotic cardiovascular disease Comment: no c/o CP Last stress test :low risk" on 10/07 Known CAD. cont ASA/Statin (4) CKD (chronic kidney disease) stage 3, GFR 30-59 ml/min Comment: creat at baseline (5) Arthritis Comment: H/o RA, on Leflunomide at home. stool C. diff pending (6) DVT prophylaxis Comment: heparin sc (7) Urinary retention Comment: pt was noted to have >400 ml of post viod residual on 10/31/16. Odom was placed. now, since pain resolved, will d/c Odom and recheck residuals. Status and Disposition: inpatient
--- NOTE | 2016-11-01 16:05 | PN ---
Progress Note - Progress Note SOAP: Subjective: Doing much better, abdominal pain resolved over night after several BMs. Denies N/V, fever or chills. Tolerating regular diet. Objective: Awake and alert, in NAD VSS, afebrile Abdomen soft, NT, ND Assessment: An 81 y/o female with resolved R groin and RLQ abdominal pain of unclear etiology. Plan: Per medicine, D/C nelida, check post-residual. Probably home tomorrow. Please call surgical associates office for a F/U on as needed basis.
[2016-11-01] MEDS: HYDROcodone/ACETAMIN 5-325 MG* 1 TAB PO PRN (17:33)
[2016-11-01] MEDS: Atorvastatin* 20 MG TAB PO SCH (22:27)
[2016-11-01] MEDS: Latanoprost 0.005%* 2.5 ml BTL BOTH EYES SCH (22:28)
[2016-11-01] MEDS: Nitro Patch/OINT Remove PATCH OFF SCH (22:30)
[2016-11-02] MEDS: Heparin VIAL(*) 5000 UNITS/ML VIAL (FIVE THOUSAND) SUBCUT SCH (05:32)
[2016-11-02 05:43] LABS: Hematocrit 34 % (35-47); Mean Corpuscular HGB Conc 33 g/dl (31-36); Mean Corpuscular Hemoglobin 31 pg (27-31); Mean Corpuscular Volume 96 fL (80-97); Mean Platelet Volume 9 um3 (7.4-10.4); Red Blood Count 3.54 10^6/ul (4.0-5.4); Red Cell Distribution Width 14 % (10.5-15); White Blood Count 12.4 10^3/ul (3.5-10.8)
[2016-11-02 06:08] LABS: BUN/Creatinine Ratio 11.2 (8-20); Calcium 9.3 mg/dL (8.6-10.3); EGFR African American 31.4 (>60); EGFR Non-African American 24.4 (>60); Potassium 3.3 mmol/L (3.5-5.0)
[2016-11-02] MEDS: Carvedilol TAB* 25 MG PO SCH (09:09)
[2016-11-02] MEDS: amLODIPine TAB* 5 MG PO SCH (09:09)
[2016-11-02] MEDS: Aspirin Low Dose CHEW TAB* 81 MG PO SCH (09:09)
[2016-11-02] MEDS: Nitroglycerin 0.2 MG/HR PATCH* (5 MG) TRANSDERM SCH (09:09)
[2016-11-02] MEDS: hydrALAZINE TAB* 10 MG PO SCH (09:09)
[2016-11-02] MEDS: Pantoprazole IV* 40 MG IV SCH (09:10)
[2016-11-02] MEDS: CMC:Dorzolamide/Timolol OPTH (NF) 10 ML BOT BOTH EYES SCH (09:11)
[2016-11-02] MEDS: CMC:Brimonidine P 0.15%(NF) OPH SOL 5 ML BTL BOTH EYES SCH (09:11)
[2016-11-02 09:18] VITALS: BP 169/65
[2016-11-02] MEDS: HYDROcodone/ACETAMIN 5-325 MG* 1 TAB PO PRN (09:39)
--- NOTE | 2016-11-02 12:02 | PN ---
Hospitalist Progress Note . HOSPITALIST DISCHARGE NOTE: See dc instructions and summary by me. Patient stable for dc dc instructions reviewed with the patient at the bedside. DC patient home today.
== END 2016-11-02 11:50 | disposition home or self-care (01) | DRG 392 ==
LOC: ED 15:48 → MED 20:11
PROVIDERS: ADMIT Pediatrics; ATTEND Internal Medicine
PROC: 0T9B70Z Drainage of Bladder with Drainage Device, Via Natural or Artificial Opening (ICD-10-PCS; principal; 2016-11-01)
DX: R10.9 Unspecified abdominal pain (principal); I42.8 Other cardiomyopathies; I27.2 Other secondary pulmonary hypertension; I25.10 Atherosclerotic heart disease of native coronary artery without angina pectoris; I08.1 Rheumatic disorders of both mitral and tricuspid valves; M48.06 Spinal stenosis, lumbar region; M19.049 Primary osteoarthritis, unspecified hand; M47.817 Spondylosis without myelopathy or radiculopathy, lumbosacral region; E78.5 Hyperlipidemia, unspecified; M06.9 Rheumatoid arthritis, unspecified; K21.9 Gastro-esophageal reflux disease without esophagitis; R50.9 Fever, unspecified; G43.909 Migraine, unspecified, not intractable, without status migrainosus; E78.00 Pure hypercholesterolemia, unspecified; K44.9 Diaphragmatic hernia without obstruction or gangrene; I12.9 Hypertensive chronic kidney disease with stage 1 through stage 4 chronic kidney disease, or unspecified chronic kidney disease; H91.91 Unspecified hearing loss, right ear; H40.9 Unspecified glaucoma; N18.3 Chronic kidney disease, stage 3 (moderate); R33.9 Retention of urine, unspecified; N20.0 Calculus of kidney; R10.30 Lower abdominal pain, unspecified; Z88.8 Allergy status to other drugs, medicaments and biological substances; Z95.5 Presence of coronary angioplasty implant and graft; I25.2 Old myocardial infarction; Z90.49 Acquired absence of other specified parts of digestive tract; Z90.710 Acquired absence of both cervix and uterus; Z86.73 Personal history of transient ischemic attack (TIA), and cerebral infarction without residual deficits; Z98.42 Cataract extraction status, left eye; Z98.41 Cataract extraction status, right eye; Z82.49 Family history of ischemic heart disease and other diseases of the circulatory system; Z80.9 Family history of malignant neoplasm, unspecified; Z97.4 Presence of external hearing-aid; Z85.828 Personal history of other malignant neoplasm of skin; Z90.722 Acquired absence of ovaries, bilateral
CPT/HCPCS: 36415; 74176; 76770; 80048; 80053; 81003; 81015; 83605; 83690; 83735; 85025; 85610; 86140; 87040; 87086; 87493; 87502; 93005; 94760; 96374; 96375; 99283; A9270-GY; J0360; J1644; J2270; J2405; J2543; J3480

== ENCOUNTER 2018-06-03 13:47 | Emergency (ER) | payer BC, MEDICARE ==
[2018-06-03] MEDS ORDERED: Ondansetron ODT TAB* 4 MG PO ONE (15:04)
--- NOTE | 2018-06-03 15:11 | UC ---
Dizzy HPI HPI Summary: 82yo with PMH of CAD, ESRD, HTN, HLD, rheumatoid arthritis, hearing loss and Meniere's disease who states had a recurrence yesterday night with nausea and vomiting. SHe has persistence of these symptoms today and has not been able to tolerate fluids but since arrival to an hour ago has not vomited and is less nauseous. Vertigo appears with head movement, denies tinnitus , abdominal pain or diarrhea. Denies chills or fever - History Of Current Complaint Chief Complaint: UCAbdominalPain Stated Complaint: DIZZINESS, AND VOMITING Time Seen by Provider: 06/03/18 14:47 Hx Obtained From: Patient Onset/Duration: Sudden Onset, Lasting Days Timing: Minutes Severity Initially: Moderate Severity Currently: Severe Pain Intensity: 10 Character: Room Spinning, Dizzy Aggravating Factor(s): Change In Head Position Alleviating Factor(s): Rest Associated Signs And Symptoms: Positive: Nausea, Vomiting - Risk Factors Cardiac Risk Factors: Hypertension, Prior MD, CAD CVA Risk Factor: Hypertension - Allergies/Home Medications Allergies/Adverse Reactions: Allergies Allergy/AdvReac Type Severity Reaction Status Date / Time LIZ Inhibitors Allergy swelling Verified 06/03/18 13:51 lips and face lisinopril Allergy Swelling Verified 06/03/18 13:51 PMH/Surg Hx/FS Hx/Imm Hx - Additional Past Medical History Additional PMH: CAD, ESRD, HTN, HLD, rheumatoid arthritis, hearing loss and Meniere's disease Cardiovascular History: Cardiac Disease, Hypertension - Surgical History Surgical History: Yes Surgery Procedure, Year, and Place: bladder neckplasty surgery- 1990,. hysterectomy- 1974;. ex lap- 1999;. RT ear surgery (LABRYNTHECTOMY);. LAP PALMER - 1995;. right kidney stent- 2002;. bilateral oophrectomy -2002;. replace stent right kidney -2002;. LEFT carpal tunnel release- 2009;. HEART STENTS X 2(HAS CARDS);. CATARACT REPAIR;. appendectomy; - Family History Known Family History: Positive: Cardiac Disease Negative: Diabetes - Social History Alcohol Use: Weekly Alcohol Amount: glass of wine Substance Use Type: None Smoking Status (MU): Never Smoked Tobacco - Immunization History Most Recent Influenza Vaccination: April 2016 Most Recent Tetanus Shot: 2014 Most Recent Pneumonia Vaccination: April 2016 Review of Systems All Other Systems Reviewed And Are Negative: Yes Gastrointestinal: Positive: Vomiting, Nausea Physical Exam Triage Information Reviewed: Yes Appearance: Well-Appearing, No Pain Distress, Well-Nourished Vital Signs: Initial Vital Signs Temp 98 F 06/03/18 13:51 Pulse 59 06/03/18 13:51 Resp 16 06/03/18 13:51 BP 127/64 06/03/18 13:51 Pulse Ox 98 06/03/18 13:51 Vital Signs Reviewed: Yes Eyes: Positive: Conjunctiva Clear ENT: Positive: Pharynx normal, Uvula midline, Other - RTM cerumen, LTM wnl, uses hearing aid on left Neck: Positive: Supple, Nontender, No Lymphadenopathy Respiratory: Positive: Chest non-tender, Lungs clear, Normal breath sounds, No respiratory distress Cardiovascular: Positive: RRR, No Murmur, Pulses Normal, Brisk Capillary Refill Abdomen Description: Positive: Nontender, No Organomegaly, Soft Bowel Sounds: Positive: Present Musculoskeletal: Positive: No Edema Neurological: Positive: Alert, Muscle Tone Normal Psychological: Positive: Normal Response To Family, Age Appropriate Behavior Skin Exam: Normal Dizzy Course/Dx - Course Course Of Treatment: patient presents with recurrence of Meniere's disease, history of right ear surgery, oral fluid challenge given after zofran ODT administration. Was able to tolerate it. Prescription of zofran sent, f/u ENT and with PCP - Differential Dx/Diagnosis Provider Diagnoses: Meniere's disease Discharge - Sign-Out/Discharge Documenting (check all that apply): Patient Departure All imaging exams completed and their final reports reviewed: Yes - Discharge Plan Condition: Stable Disposition: HOME Patient Education Materials: Meniere Disease (ED), Meclizine (By mouth) Referrals: Jose Moore DO [Primary Care Provider] - - Billing Disposition and Condition Condition: STABLE Disposition: Home
[2018-06-03 16:21] VITALS: BP 150/90
== END 2018-06-03 16:37 | disposition home or self-care (01) ==
LOC: UCEAST 13:47
DX: H81.09 Meniere's disease, unspecified ear (principal); I12.0 Hypertensive chronic kidney disease with stage 5 chronic kidney disease or end stage renal disease; N18.6 End stage renal disease; I25.10 Atherosclerotic heart disease of native coronary artery without angina pectoris; I25.2 Old myocardial infarction; M06.9 Rheumatoid arthritis, unspecified; Z95.5 Presence of coronary angioplasty implant and graft; Z88.8 Allergy status to other drugs, medicaments and biological substances
CPT/HCPCS: 93005; 99212; A9270-GY; G0463

== ENCOUNTER 2018-08-31 12:03 | Emergency (ER) | payer BC, MEDICARE ==
[2018-08-31 13:04] VITALS: BP 137/32
--- NOTE | 2018-08-31 13:07 | UC ---
Ear Complaint HPI - HPI Summary HPI Summary: 82 yo female presents with FB to left ear. She tells me that she has had hearing aids in the past. Was at [facility] today to get a mold of her ear for a new hearing aid and they were unable to remove the mold due to significant pain. They referred pt to . At rest she is in mild discomfort at a 3/10, but with any manipulation of the mold her pain goes to a 7-8/10. She has had ear molds done in the past and has never had this problem. - History of Current Complaint Chief Complaint: UCEar Stated Complaint: EAR COMPLAINT Time Seen by Provider: 08/31/18 13:06 Hx Obtained From: Patient Onset/Duration: Sudden Onset Severity Initially: Mild Severity Currently: Mild Pain Intensity: 3 Pain Scale Used: 0-10 Numeric - Allergies/Home Medications Allergies/Adverse Reactions: Allergies Allergy/AdvReac Type Severity Reaction Status Date / Time LIZ Inhibitors Allergy swelling Verified 08/31/18 13:04 lips and face lisinopril Allergy Swelling Verified 08/31/18 13:04 PMH/Surg Hx/FS Hx/Imm Hx Endocrine History: Dyslipidemia Cardiovascular History: Hypertension GI/ History: Gastroesophageal Reflux - Surgical History Surgical History: Yes Surgery Procedure, Year, and Place: bladder neckplasty surgery- 1990,. hysterectomy- 1974;. ex lap- 1999;. RT ear surgery (LABRYNTHECTOMY);. LAP PALMER - 1995;. right kidney stent- 2002;. bilateral oophrectomy -2002;. replace stent right kidney -2002;. LEFT carpal tunnel release- 2009;. HEART STENTS X 2(HAS CARDS);. CATARACT REPAIR;. appendectomy; - Family History Known Family History: Positive: Cardiac Disease Negative: Diabetes - Social History Occupation: Retired Alcohol Use: Weekly Alcohol Amount: glass of wine Substance Use Type: None Smoking Status (MU): Never Smoked Tobacco - Immunization History Most Recent Influenza Vaccination: April 2016 Most Recent Tetanus Shot: 2014 Most Recent Pneumonia Vaccination: April 2016 Review of Systems All Other Systems Reviewed And Are Negative: Yes Constitutional: Positive: Negative Skin: Positive: Negative Eyes: Positive: Negative ENT: Positive: Other - FB left ear Respiratory: Positive: Negative Cardiovascular: Positive: Negative Gastrointestinal: Positive: Negative Neurological: Positive: Negative Psychological: Positive: Negative Physical Exam - Summary Physical Exam Summary: GENERAL: NAD. WDWN. No pain distress. SKIN: No rashes, sores, lesions, or open wounds. HEENT: Head: AT/NC Ears: Significantly decreased hearing b/l. LEFT ear with large plastic/wax like mold extending to the antihelix. CHEST: No accessory muscle use. Breathing comfortably and in no distress. CV: Pulses intact. Cap refill <2seconds NEURO: Alert. PSYCH: Age appropriate behavior. Triage Information Reviewed: Yes Vital Signs: Initial Vital Signs Temp 98 F 08/31/18 13:01 Pulse 57 08/31/18 13:01 Resp 16 08/31/18 13:01 BP 137/32 08/31/18 13:01 Pulse Ox 98 08/31/18 13:01 Vital Signs Reviewed: Yes Ear Complaint Course/Dx - Course Course Of Treatment: With any manual manipulation of the mold, pt has significant pain and is unable to tolerate. I called [facility] and spoke to a nurse who advised for pt to come to their office now and pt will be evaluated by one of their providers. Discussed this with pt and she is agreeable to this. - Differential Dx/Diagnosis Provider Diagnosis: Foreign body in left ear Discharge - Sign-Out/Discharge Documenting (check all that apply): Patient Departure All imaging exams completed and their final reports reviewed: No Studies - Discharge Plan Condition: Stable Disposition: HOME Referrals: Jose Moore DO [Primary Care Provider] - Kiko Castillo MD [Medical Doctor] - As Soon As Possible Additional Instructions: I spoke with the [facility] doctor's office and they will see you now. Please go to their address below for further treatment of your ear foreign body. - Billing Disposition and Condition Condition: STABLE Disposition: Home
== END 2018-08-31 13:29 | disposition home or self-care (01) ==
LOC: UCEAST 12:03
DX: T16.2XXA Foreign body in left ear, initial encounter (principal); I10 Essential (primary) hypertension; Z88.0 Allergy status to penicillin; X58.XXXA Exposure to other specified factors, initial encounter; Y92.9 Unspecified place or not applicable
CPT/HCPCS: 99211; G0463